=== PATIENT | female | born 1960 | race Caucasian/White ===

== ENCOUNTER 2016-12-23 16:34 | Emergency (ER) | payer OTHER ==
[2016-12-23 16:54] VITALS: BP 162/100
--- NOTE | 2016-12-23 17:57 | ED ---
Upper Extremity Pain - HPI Summary HPI Summary: 56F presents fall landed on right shoulder. She states she slipped on some tile and landed on her right shoulder. She has limited ROM of shoulder due to pain. She has not taken anything for her pain. She denies any previous injury to the area. She denies any numbness or tingling. She is right handed. She denies hitting her head or any other pain. - History of Current Complaint Chief Complaint: BayldSanthoshniccikatharine Stated Complaint: FALL/RT SHOULDER INJURY Time Seen by Provider: 12/23/16 17:22 - Allergies/Home Medications Allergies/Adverse Reactions: Allergies Allergy/AdvReac Type Severity Reaction Status Date / Time Tetracycline Allergy Mild Rash Verified 12/15/16 10:48 PMH/Surg Hx/FS Hx/Imm Hx Endocrine/Hematology History: Reports: Hx Thyroid Disease Denies: Hx Diabetes Cardiovascular History: Denies: Hx Hypercholesterolemia, Hx Hypertension, Hx Pacemaker/ICD, Hx Peripheral Vascular Disease Respiratory History: Denies: Hx Asthma, Hx Chronic Obstructive Pulmonary Disease (COPD) GI History: Denies: Hx Ulcer History: Denies: Hx Renal Disease Musculoskeletal History: Denies: Hx Arthritis, Hx Osteoporosis Sensory History: Denies: Hx Cataracts, Hx Contacts or Glasses, Hx Glaucoma, Hx Hearing Aid Opthamlomology History: Denies: Hx Cataracts, Hx Contacts or Glasses, Hx Glaucoma Neurological History: Denies: Hx Headaches, Hx Seizures, Hx Transient Ischemic Attacks (TIA) Psychiatric History: Denies: Hx Anxiety, Hx Depression, Hx Panic Disorder - Cancer History Hx Chemotherapy: No Hx Radiation Therapy: No - Surgical History Surgery Procedure, Year, and Place: total left knee replacement (2012) gastric by pass (2008) gall bladder removed (1994) rt and lt torn meniscus / scoping ( many) tubal ligation (1992),breast biopsy pt unsure what side Infectious Disease History: Denies: Hx Hepatitis, Hx Human Immunodeficiency Virus (HIV), Traveled Outside the [place] in Last 30 Days - Family History Known Family History: Positive: Cardiac Disease - Social History Alcohol Use: Weekly Hx Substance Use: No Substance Use Type: Reports: None Hx Tobacco Use: No Smoking Status (MU): Never Smoked Tobacco Review of Systems Negative: Fever Negative: Chest Pain Negative: Shortness Of Breath Positive: Myalgia - right shoulder pain All Other Systems Reviewed And Are Negative: Yes Physical Exam Triage Information Reviewed: Yes Vital Signs On Initial Exam: Initial Vitals Temp Pulse Resp BP Pulse Ox 98.8 F 67 20 162/100 99 12/23/16 16:51 12/23/16 16:51 12/23/16 16:51 12/23/16 16:51 12/23/16 16:51 Vital Signs Reviewed: Yes Appearance: Positive: Well-Appearing Skin: Positive: Warm, Dry Head/Face: Positive: Normal Head/Face Inspection Eyes: Positive: Normal, Conjunctiva Clear Respiratory/Lung Sounds: Positive: Clear to Auscultation, Breath Sounds Present Cardiovascular: Positive: Normal, RRR Musculoskeletal: Positive: Limited @ - right shoulder, Other - neg drop arm or speeds test, good pulses, capillary refil < 2 secs, tender over anterior shoulder, no step off Diagnostics - Vital Signs Vital Signs Temp Pulse Resp BP Pulse Ox 12/23/16 17:21 98.8 F 67 20 162/100 100 12/23/16 16:51 98.8 F 67 20 162/100 99 - Laboratory Lab Statement: Any lab studies that have been ordered have been reviewed, and results considered in the medical decision making process. - Radiology shoulder Xray Interpretation: No Acute Changes Radiology Interpretation Completed By: Radiologist Course/Dx - Course Course Of Treatment: 56F presents with right shoulder pain s/p falling on it. is right handed. denies any head injury. on exam no obvious deformity. tender over anterior shoulder, neg drop arm. xray normal. gave sling and told to follow up with primary. patient understands and agrees with plan - Diagnoses Differential Diagnosis/HQI/PQRI: Positive: Contusion, Fracture (Closed), Strain , Sprain Provider Diagnoses: Right shoulder injury Discharge - Discharge Plan Condition: Good Disposition: HOME Patient Education Materials: Shoulder Pain (ED) Referrals: Geovani Vernon MD [Primary Care Provider] - Additional Instructions: Take Tylenol every 6 hours as needed for pain Ice area for next 2 days, then can switch heat if more comfortable Can rest for one day and then need to do range of motion activities for shoulder Follow up with primary care physician within 7 days Return to ED if develop any new or worsening symptoms
--- NOTE | 2016-12-23 17:58 | RAD ---
HISTORY: Fall, right shoulder injury COMPARISONS: None VIEWS: 3, Frontal internal rotation, external rotation, and outlet views of the right shoulder FINDINGS: BONE DENSITY: Normal. BONES: There is no displaced fracture. JOINTS: There is mild osteoarthritis of the a.c. and glenohumeral joints ALIGNMENT: There is no dislocation. SOFT TISSUES: Unremarkable. OTHER FINDINGS: None. IMPRESSION: NO ACUTE OSSEOUS INJURY. IF SYMPTOMS PERSIST, RECOMMEND REPEAT IMAGING.
[2016-12-23] MEDS ORDERED: oxyCODONE/Acetamin 5/325 MG* TAB PO ONE (18:07)
== END 2016-12-23 18:33 | disposition home or self-care (01) ==
LOC: ED 16:34
DX: S49.91XA Unspecified injury of right shoulder and upper arm, initial encounter (principal); M25.511 Pain in right shoulder; W19.XXXA Unspecified fall, initial encounter; Y93.9 Activity, unspecified; Y92.9 Unspecified place or not applicable
CPT/HCPCS: 99282; A9270-GY

== ENCOUNTER 2017-02-04 07:40 | Emergency (ER) | payer OTHER ==
[2017-02-04 07:48] VITALS: BP 141/91
--- NOTE | 2017-02-04 08:58 | RAD ---
Indication: Right thumb injury. 3 views of the right thumb demonstrates degenerative changes of the trapezium first metacarpal joint. No fracture is identified. Degenerative changes of the interphalangeal joint is noted. IMPRESSION: DEGENERATIVE CHANGES OF THE TRAPEZIUM FIRST METACARPAL JOINT. NO FRACTURE OF THE RIGHT THUMB IS NOTED.
--- NOTE | 2017-02-04 08:58 | RAD ---
Indication: Right forearm injury after fall. 2 views of the right forearm demonstrates no fracture or dislocation. No other bone or joint abnormality is identified. IMPRESSION: No definite fracture of the right forearm is noted.
--- NOTE | 2017-02-04 09:00 | RAD ---
Indication: Right rib tenderness after fall 4 views of the right ribs demonstrates no fracture. No other bone or joint abnormality is identified. IMPRESSION: No fracture of the right ribs is present.
--- NOTE | 2017-03-08 21:38 | UC ---
Jason Phillip Aidan, scribed for Josie Robb DO on 02/04/17 at 0811 . Truncal Trauma HPI - HPI Summary HPI Summary: 56 y/o female presents to the Urgent Care with a complaint of acute, constant, [id number] (8/10) right rib pain just below the right breast that began just after she tripped and fell onto the right side of her trunk while walking up stairs. She denies hitting her head or any associated LOC. Associated symptoms include bruises to the lower extremities bilaterally. Breathing deeply aggravates her rib pain. Pt denies fevers, chills, CP, abdominal pain, diaphoresis, nausea, or vomiting. - History Of Current Complaint Chief Complaint: UCGeneralIllness Stated Complaint: RIB INJURY Hx Obtained From: Patient Hx Last Menstrual Period: unknown ?: No Onset/Duration: Sudden Onset, Lasting Days - since yesterday, Still Present Severity Initially: Moderate Severity Currently: Moderate - moderate to severe Pain Intensity: 8 Pain Scale Used: 0-10 Numeric Mechanism Of Injury: Fall From A Standing Position - Pt tripped on stairs Aggravating Factor(s): Deep Breathing Alleviating factor(s): Nothing - unknown Associated Signs And Symptoms: Negative: Negative - bruising to lower extremities - Allergies/Home Medications Allergies/Adverse Reactions: Allergies Allergy/AdvReac Type Severity Reaction Status Date / Time Tetracycline Allergy Mild Rash Verified 12/15/16 10:48 Home Medications: Home Medications Lactobacillus [Probiotic] 02/04/17 [History] Lysine HCl [Lysine] 02/04/17 [History] PMH/Surg Hx/FS Hx/Imm Hx - Additional Past Medical History Additional PMH: Arthritis Endocrine History: Thyroid Disease - Surgical History Surgical History: Yes Surgery Procedure, Year, and Place: total left knee replacement (2012) gastric by pass (2008) gall bladder removed (1994) rt and lt torn meniscus / scoping ( ) tubal ligation (1992),breast biopsy pt unsure what side - Family History Known Family History: Positive: Cardiac Disease - Social History Occupation: Employed Full-time Lives: With Family Alcohol Use: Weekly Substance Use Type: None Smoking Status (MU): Never Smoked Tobacco Review of Systems Constitutional: Negative Skin: Bruising Eyes: Negative ENT: Negative Respiratory: Negative Cardiovascular: Negative Gastrointestinal: Negative Genitourinary: Negative Motor: Negative Neurovascular: Negative Musculoskeletal: Negative Neurological: Negative Psychological: Negative All Other Systems Reviewed And Are Negative: Yes Physical Exam Triage Information Reviewed: Yes Appearance: Well-Appearing, No Pain Distress, Well-Nourished Vital Signs: Initial Vital Signs Temp 97.8 F 02/04/17 07:44 Pulse 65 02/04/17 07:44 Resp 16 02/04/17 07:44 BP 141/91 02/04/17 07:44 Pulse Ox 100 02/04/17 07:44 Vital Signs Reviewed: Yes Eyes: Positive: Conjunctiva Clear. Negative: Discharge ENT: Positive: Hearing grossly normal. Negative: Muffled/hoarse voice Neck exam: Normal Neck: Positive: Supple Respiratory: Positive: Lungs clear, Normal breath sounds, No respiratory distress, No accessory muscle use Cardiovascular: Positive: RRR, No Murmur Musculoskeletal Exam: Other - Tenderness over ribs 8-9 and tender over the proximal first metacarpal, tender proximal and distal radius. Neurological Exam: Normal Neurological: Positive: Alert Psychological Exam: Normal Psychological: Positive: Age Appropriate Behavior Skin Exam: Normal, Other - warm, dry, normal color Diagnostics - Radiology THUMB X-RAY Xray Interpretation: No Acute Changes - IMPRESSION: DEGENERATIVE CHANGES OF THE TRAPEZIUM FIRST METACARPAL JOINT. NO FRACTURE OF THE RIGHT THUMB IS NOTED. Radiology Interpretation Completed By: Radiologist FOREARM X-RAY Xray Interpretation: No Acute Changes - IMPRESSION: No definite fracture of the right forearm is noted. Radiology Interpretation Completed By: Radiologist RIBS X-RAY Xray Interpretation: No Acute Changes - IMPRESSION: No fracture of the right ribs is present. Radiology Interpretation Completed By: Radiologist Truncal Trauma Course/Dx - Course Course Of Treatment: 56 y/o female presents with right rib pain just below the right breast that resulted from her tripping and falling onto her trunk. High blood pressure is noted. - Differential Dx/Diagnosis Differential Diagnosis/HQI/PQRI: Chest Wall Contusion, Rib Fracture Provider Diagnoses: rib injury, contusion Discharge - Discharge Plan Condition: Stable Disposition: HOME Prescriptions: Naproxen TAB* [Naprosyn 250 mg TAB*] 500 mg PO BID PRN #14 tab PRN Reason: Pain traMADol TAB* [Ultram*] 50 mg PO Q8H PRN #14 tab MDD 3 TABS PRN Reason: Pain Patient Education Materials: Contusion in Adults (ED), Rib Contusion (ED) Referrals: Geovani Vernon MD [Primary Care Provider] - If Needed Additional Instructions: YOU WOULD LIKELY BENEFIT FROM OSTEOPATHIC TREATMENT. WE RECOMMEND THAT YOU FIND AN OSTEOPATHIC PHYSICIAN IN YOUR AREA WHO FOCUSES EXCLUSIVELY ON OSTEOPATHIC MANIPULATIVE MEDICINE WITH EXPERTISE IN MYOFACIAL, LYMPHATIC, VISCERAL AND INTEROSSEOUS WORK The documentation as recorded by the Jason parrish Aidan accurately reflects the service I personally performed and the decisions made by me, Josie Robb DO.
== END 2017-02-04 09:32 | disposition home or self-care (01) ==
LOC: UCEAST 07:40
DX: S20.211A Contusion of right front wall of thorax, initial encounter (principal); S29.9XXA Unspecified injury of thorax, initial encounter; W10.2XXA Fall (on)(from) incline, initial encounter; Y93.9 Activity, unspecified; Y92.9 Unspecified place or not applicable; R03.0 Elevated blood-pressure reading, without diagnosis of hypertension; Z96.652 Presence of left artificial knee joint; Z98.84 Bariatric surgery status; Z90.49 Acquired absence of other specified parts of digestive tract; Z88.1 Allergy status to other antibiotic agents
CPT/HCPCS: 99212; G0463

== ENCOUNTER 2019-05-08 07:30 | Inpatient (IN) | payer OTHER ==
--- NOTE | 2019-04-25 16:51 | HP ---
Amended report to enter cosigning physician. PREOPERATIVE HISTORY AND PHYSICAL: DATE OF ADMISSION/SURGERY: 05/08/19 SURGEON: Dr. Viri Morris* (dictated by MORIAH Seals). PROCEDURE: Right total knee arthroplasty. HISTORY OF PRESENT ILLNESS: Ms. Carranza is a 58-year-old female with almost a year of increasingly severe right knee pain that has become unmanageable. Her pain is made worse with walking, standing, or after a period of sitting. The knee has given out on her and feels unstable. She has a sharp shooting pain along the joint line with swelling and has failed conservative treatment of anti -inflammatories and physical therapy without relief. The patient had a left total knee arthroplasty in [place] several years ago with poor pain control postoperatively requiring manipulation under anesthesia. She is quite nervous today about her postoperative course and a discussion was had with Dr. Morris regarding a request for swing bed postoperatively in rehab facility. PAST MEDICAL HISTORY: Hypertension, osteoarthritis, hypercholesterolemia, GERD , morbid obesity. PAST SURGICAL HISTORY: Left total knee arthroplasty in 2012, gastric bypass in 2008, tubal ligation in 1991, cholecystectomy, rotator cuff repair in October 2007. She denies anesthetic complications with these procedures. CURRENT MEDICATIONS: 1. Levoxyl 75 mcg 1 tab p.o. daily. 2. Iron 1 tab p.o. daily. 3. Vitamin D3 4000 International Units p.o. daily. 4. Losartan potassium 50 mg 1 tab by mouth daily. 5. Contrave 8/90 mg 2 tabs twice a day. 6. Voltaren 1% cream apply 2 g twice daily as needed for pain. ALLERGIES: TETRACYCLINE can make her itchy. FAMILY HISTORY: Positive for diabetes, heart disease, hypertension, and cancer. SOCIAL HISTORY: She lives with her , who will care for her postoperatively. 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 She denies tobacco or recreational drug use. She consumes 4 to 6 alcoholic beverages per week. She is normally active. REVIEW OF SYSTEMS: A 14-point review of systems is reviewed with the patient today and is positive for right knee pain, right knee instability, weight loss. All other systems are negative. She denies history of DVT or PE. PHYSICAL EXAMINATION GENERAL: She is a well-developed, heavyset female, seated in exam chair, in no acute distress, with appropriate affect. VITAL SIGNS: Height 63 inches, weight 211 pounds. Pulse 64, blood pressure 138 /86, respirations 18. HEENT: Normocephalic, atraumatic. Hearing and vision are grossly intact, with extraocular movements intact. CHEST: Lungs are clear to auscultation. No wheezes, rales, or rhonchi noted. CARDIO: Regular rate and rhythm. Normal S1, S2. No murmurs, rubs, or gallops appreciated. ABDOMEN: Nondistended, nontender. Bowel sounds present. GENITOURINARY: Deferred. MUSCULOSKELETAL: Right lower extremity: Skin is pink, dry, and intact without abrasions or open wounds. A moderate effusion is noted at the joint. She is tender to palpation along the medial joint line with varus deformity of the knee. She extends to 5 degrees, flexes to 120 with pain and patellofemoral crepitus. She has 5/5 strength against resistance in 4 planes in the right ankle with intact sensation and a 2+ dorsalis pedis pulse. IMAGING: Previous radiographs show severe end-stage arthritis in the right knee with varus alignment. There is [id number] contact in the medial compartment as well as tricompartmental joint space narrowing, osteophyte formation, subchondral sclerosis. ASSESSMENT: Right knee severe osteoarthritis. PLAN: Right total knee arthroplasty with Dr. Morris. The patient's questions were answered and she would like to proceed. Dr. Morris discussed the risks and benefits of surgery at today's visit. Pain medications will be dispensed postoperatively and the patient will follow up with our office after surgery. MORIAH MESA [id number]/CPS #: [id number] MARIE
[~2019-05-08 07:30] MED LIST: Acetaminophen IV 1GM/100ML * 1,000 MG/100 ML VIAL IVPB ONE; Buffered Lidocaine 1% SYRIN* 1 ML/SYRINGE INTRADERM ONE; Dexamethasone IV* 4 MG/ML 1 ML (4 MG) IV SLOW PU ONE; Famotidine IV* 10 MG/ML 2 ML (20 mg) IV ONE; Gabapentin CAP(*) 300 MG PO ONE; Lactated Ringers 1000 ML Bag* 1,000 ML IV SCH; Tranexamic Acid 1,000 MG in NS 0.9% 50 ML* (outpatient use) IV SCH
--- OUTSIDE RECORDS SUMMARY | 2019-05-08 11:03 | XMS REPORT | Continuity of Care Document ---
:1960 External Reference #:[id number] Author Name Cynthia Davis M.D. Address [address] [place] [address] Care Team Providers Name Role Phone Geovani Vernon M.D. 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 Onset: 07/10/2014 chemical Toxic effect of venom Cynthia Davis M.D. Onset: 07/10/2014 Toxic effect of venom of bees, accidental Cynthia Davis M.D. Onset: 2015 (unintentional), subsequent encounter Toxic effect of venom of wasps, accidental Cynthia Davis M.D. Onset: 2015 (unintentional), subsequent encounter Toxic effect of venom of hornets, jonn Davis M.D. Onset: 08/19 (unintentional), subsequent encounter Chronic rhinitis Cynthia Davis M.D. Onset: 08/19/2016 Atopic dermatitis Cynthia Davis M.D. Onset: 09/18/2014 Social History Type Date Description Comments Sex Unknown ETOH Use Occasionally consumes alcohol Tobacco Use Start: Unknown Patient has never smoked Recreational Drug Use Denies Drug Use Allergies, Adverse Reactions, Alerts Active Allergies Reaction Severity Comments Date Tetracycline Urticaria 07/10/2014 Medications Active Medications SIG Qnty Indications Ordering Date Provider Levothyroxine Sodium Geovani Vernon Kathy Simms 75mcg Tablets Iron Unknown 28mg Tablets Vitamin D Unknown 1000Unit Tablets Vitamin K2-Vitamin D3 with calcium, Unknown magnesium Capsules Epipen 2-Shahram use as directed 2units Cynthia Davis, 0.3mg/0.3ML for allergy Kathy Solution Auto-Inject exposure Losartan Potassium Take 1 Tablet By Unknown 50mg Mouth Every Day Tablets Sweetie Allergy 1 by mouth every Unknown 180mg day Tablets Contrave Take 2 Tablets By Unknown 8-90mg Tablets Mouth Twice A Day ER 12HR Diclofenac Sodium Apply To Unknown 1% Gel Bilateral Knees Up To Three Times Daily Triamcinolone Apply To Affected Unknown Acetonide Area Twice A Day 0.1% Cream Medications Administered in Office Medication SIG Qnty Indications Ordering Provider Date Injection Allergy Injection 04/11/2019 Injection Injection Allergy Injection 03/12/2019 Injection Injection Allergy Injection 02/19/2019 Injection Injection Allergy Injection 02/01/2019 Injection Injection Allergy Injection 12/25/2018 Injection Injection Allergy Injection 11/27/2018 Injection Injection Allergy Injection 11/24/2018 Injection Injection Allergy Injection 11/20/2018 Injection Injection Allergy Injection 11/17/2018 Injection Injection Allergy Injection 11/13/2018 Injection Injection Allergy Injection 11/10/2018 Injection Injection Allergy Injection 11/06/2018 Injection Injection Allergy Injection 10/30/2018 Injection Injection Allergy Injection 10/16/2018 Injection Injection Allergy Injection 10/02/2018 Injection Injection Allergy Injection 09/21/2018 Injection Injection Allergy Injection 09/13/2018 Injection Injection Allergy Injection 08/28/2018 Injection Injection Allergy Injection 08/07/2018 Injection Injection Allergy Injection 07/26/2018 Injection Injection Allergy Injection 07/10/2018 Injection Injection Allergy Injection 06/29/2018 Injection Injection Allergy Injection 06/15/2018 Injection Injection Allergy Injection 05/31/2018 Injection Injection Allergy Injection 05/18/2018 Injection Injection Cynthia Davis M.D. 05/04/2018 Injection Injection Allergy Injection 05/04/2018 Injection Injection Cynthia Davis M.D. 04/20/2018 Injection Injection Allergy Injection 04/20/2018 Injection Injection Allergy Injection 04/12/2018 Injection Injection Cynthia Davis M.D. 01/09/2018 Injection Injection Allergy Injection 01/09/2018 Injection Injection Allergy Injection 12/12/2017 Injection Injection Allergy Injection 11/14/2017 Injection Injection Allergy Injection 10/07/2017 Injection Injection Allergy Injection 09/09/2017 Injection Injection Allergy Injection 09/02/2017 Injection Injection Allergy Injection 08/26/2017 Injection Injection Allergy Injection 08/17/2017 Injection Injection Allergy Injection 05/20/2017 Injection Injection Allergy Injection 04/22/2017 Injection Injection Allergy Injection 03/25/2017 Injection Injection Allergy Injection 02/11/2017 Injection Injection Allergy Injection 01/14/2017 Injection Injection Allergy Injection 12/09/2016 Injection Injection Allergy Injection 11/10/2016 Injection Injection Allergy Injection 10/13/2016 Injection Injection Allergy Injection 09/22/2016 Injection Injection Allergy Injection 09/08/2016 Injection Injection Allergy Injection 08/19/2016 Injection Injection Allergy Injection 08/09/2016 Injection Injection Allergy Injection 07/26/2016 Injection Injection Allergy Injection 07/12/2016 Injection Injection Allergy Injection 06/28/2016 Injection Injection Allergy Injection 06/14/2016 Injection Injection Allergy Injection 05/31/2016 Injection Injection Allergy Injection 05/17/2016 Injection Injection Allergy Injection 05/03/2016 Injection Injection Allergy Injection 04/23/2016 Injection Injection Allergy Injection 04/09/2016 Injection Injection Allergy Injection 03/24/2016 Injection Injection Allergy Injection 03/08/2016 Injection Injection Allergy Injection 02/20/2016 Injection Injection Allergy Injection 02/04/2016 Injection Injection Allergy Injection 01/16/2016 Injection Injection Allergy Injection 01/02/2016 Injection Injection Allergy Injection 12/19/2015 Injection Injection Allergy Injection 12/05/2015 Injection Injection Allergy Injection 09/25/2015 Injection Injection Allergy Injection 09/10/2015 Injection Injection Allergy Injection 08/25/2015 Injection Injection Allergy Injection 08/20/2015 Injection Injection Allergy Injection 08/14/2015 Injection Injection Allergy Injection 08/06/2015 Injection Injection Allergy Injection 07/30/2015 Injection Injection Allergy Injection 07/25/2015 Injection Injection Allergy Injection 07/09/2015 Injection Injection Allergy Injection 06/30/2015 Injection Injection Allergy Injection 06/25/2015 Injection Injection Allergy Injection 06/16/2015 Injection Injection Allergy Injection 06/09/2015 Injection Injection Allergy Injection 05/19/2015 Injection Injection Allergy Injection 05/12/2015 Injection Injection Allergy Injection 05/07/2015 Injection Injection Allergy Injection 04/30/2015 Injection Injection Allergy Injection 04/24/2015 Injection Injection Allergy Injection 04/14/2015 Injection Injection Allergy Injection 04/02/2015 Injection Injection Allergy Injection 03/24/2015 Injection Injection Allergy Injection 03/19/2015 Injection Injection Allergy Injection 03/10/2015 Injection Injection Allergy Injection 03/03/2015 Injection Injection Allergy Injection 02/24/2015 Injection Injection Allergy Injection 02/19/2015 Injection Injection Allergy Injection 02/10/2015 Injection Injection Allergy Injection 02/05/2015 Injection Injection Allergy Injection 01/27/2015 Injection Injection Allergy Injection 01/20/2015 Injection Injection Allergy Injection 01/15/2015 Injection Injection Allergy Injection 01/06/2015 Injection Injection Allergy Injection 12/30/2014 Injection Injection Allergy Injection 12/23/2014 Injection Injection Allergy Injection 12/16/2014 Injection Injection Allergy Injection 12/11/2014 Injection Injection Allergy Injection 12/04/2014 Injection Injection Allergy Injection 11/25/2014 Injection Injection Allergy Injection 11/11/2014 Injection Injection Allergy Injection 11/04/2014 Injection Injection Allergy Injection 10/28/2014 Injection Injection Allergy Injection 10/21/2014 Injection Injection Allergy Injection 10/14/2014 Injection Injection Allergy Injection 10/07/2014 Injection Injection Allergy Injection 09/30/2014 Injection Immunizations CPT Code Status Date Vaccine Lot # [id number] Given Unknown Influenza Vaccine 24886 Given Unknown Influenza Vaccine Vital Signs Date Vital Result Comment 04/11/2019 8:43am Height 63 inches 5'3" Weight 210.00 lb Weight 95.256 kg Respiratory Rate 20 /min Heart Rate 78 /min O2 % BldC Oximetry 97 % BP Systolic 122 mmHg BP Diastolic 65 mmHg BMI (Body Mass Index) 37.2 kg/m2 04/12/2018 8:49am Height 63 inches 5'3" Weight 238.00 lb Weight 107.957 kg Respiratory Rate 20 /min Heart Rate 69 /min O2 % BldC Oximetry 99 % BP Systolic 131 mmHg BP Diastolic 80 mmHg BMI (Body Mass Index) 42.2 kg/m2 Results Description No Information Available Procedures Date Code Description Status 04/11/2019 03215 Injection Completed 03/12/2019 74545 Injection Completed 02/19/2019 44601 Injection Completed 02/01/2019 33319 Injection Completed 12/25/2018 00988 Extract Stings-Four Completed 12/25/2018 04088 Injection Completed 11/27/2018 06897 Injection Completed 11/24/2018 65994 Injection Completed 11/20/2018 62632 Injection Completed 11/17/2018 42836 Injection Completed 11/13/2018 31154 Extract 1-10 Completed 11/13/2018 68177 Extract Stings-Five Completed 11/13/2018 82950 Extract Stings-Four Completed 11/13/2018 95151 Injection Completed 11/10/2018 61013 Injection Completed 11/06/2018 30434 Injection Completed 10/30/2018 07571 Injection Completed 10/16/2018 71243 Injection Completed Medical Devices Description No Information Available Encounters Description No Information Available Assessments Date Code Description Provider 04/11/2019 T63.441D Toxic effect of venom of bees, accidental Cynthia Davis M.D. (unintentional), subsequent encounter 04/11/2019 T63.441D Toxic effect of venom of bees, accidental Cynthia Davis M.D. (unintentional), subsequent encounter 04/11/2019 T63.441D Toxic effect of venom of bees, accidental, Allergy Injection subs 04/11/2019 T63.461D Toxic effect of venom of wasps, jonn Davis M.D. (unintentional), subsequent encounter 04/11/2019 T63.461D Toxic effect of venom of wasps, accidental Cynthia Davis M.D. (unintentional), subsequent encounter 04/11/2019 T63.461D Toxic effect of venom of wasps, accidental, Allergy Injection subs 04/11/2019 T63.451D Toxic effect of venom of hornets, jonn Davis M.D. (unintentional), subsequent encounter 04/11/2019 T63.451D Toxic effect of venom of hornets, jonn Davis M.D. (unintentional), subsequent encounter 04/11/2019 T63.451D Toxic effect of venom of hornets, accidental, Allergy Injection subs 03/12/2019 T63.441D Toxic effect of venom of bees, accidental Cynthia Davis M.D. (unintentional), subsequent encounter 03/12/2019 T63.441D Toxic effect of venom of bees, accidental, Allergy Injection subs 03/12/2019 T63.461D Toxic effect of venom of wasps, accidental Cynthia Davis M.D. (unintentional), subsequent encounter 03/12/2019 T63.461D Toxic effect of venom of wasps, accidental, Allergy Injection subs 03/12/2019 T63.451D Toxic effect of venom of hornets, accidental Cynthia Davis M.D. (unintentional), subsequent encounter 03/12/2019 T63.451D Toxic effect of venom of hornets, accidental, Allergy Injection subs 02/19/2019 T63.441D Toxic effect of venom of bees, accidental Cynthia Davis M.D. (unintentional), subsequent encounter 02/19/2019 T63.441D Toxic effect of venom of bees, accidental, Allergy Injection subs 02/19/2019 T63.461D Toxic effect of venom of wasps, accidental Cynthia Davis M.D. (unintentional), subsequent encounter 02/19/2019 T63.461D Toxic effect of venom of wasps, accidental, Allergy Injection subs 02/19/2019 T63.451D Toxic effect of venom of hornets, accidental Cynthia Davis M.D. (unintentional), subsequent encounter 02/19/2019 T63.451D Toxic effect of venom of hornets, accidental, Allergy Injection subs 02/01/2019 T63.441D Toxic effect of venom of bees, accidental Cynthia Davis M.D. (unintentional), subsequent encounter 02/01/2019 T63.441D Toxic effect of venom of bees, accidental, Allergy Injection subs 02/01/2019 T63.461D Toxic effect of venom of wasps, accidental Cynthia Davis M.D. (unintentional), subsequent encounter 02/01/2019 T63.461D Toxic effect of venom of wasps, accidental, Allergy Injection subs 02/01/2019 T63.451D Toxic effect of venom of hornets, accidental Cynthia Davis M.D. (unintentional), subsequent encounter 02/01/2019 T63.451D Toxic effect of venom of hornets, accidental, Allergy Injection subs 12/25/2018 T63.441D Toxic effect of venom of bees, accidental Cynthia Davis M.D. (unintentional), subsequent encounter 12/25/2018 T63.441D Toxic effect of venom of bees, accidental, Allergy Injection subs 12/25/2018 T63.461D Toxic effect of venom of wasps, accidental Cynthia Davis M.D. (unintentional), subsequent encounter 12/25/2018 T63.461D Toxic effect of venom of wasps, accidental, Allergy Injection subs 12/25/2018 T63.451D Toxic effect of venom of hornets, accidental Cynthia Davis M.D. (unintentional), subsequent encounter 12/25/2018 T63.451D Toxic effect of venom of hornets, accidental, Allergy Injection subs 11/27/2018 T63.441D Toxic effect of venom of bees, accidental Cynthia Davis M.D. (unintentional), subsequent encounter 11/27/2018 T63.441D Toxic effect of venom of bees, accidental, Allergy Injection subs 11/27/2018 T63.461D Toxic effect of venom of wasps, accidental Cynthia Davis M.D. (unintentional), subsequent encounter 11/27/2018 T63.461D Toxic effect of venom of wasps, accidental, Allergy Injection subs 11/27/2018 T63.451D Toxic effect of venom of hornets, jonn Davis M.D. (unintentional), subsequent encounter 11/27/2018 T63.451D Toxic effect of venom of hornets, accidental, Allergy Injection subs 11/24/2018 T63.441D Toxic effect of venom of bees, accidental Cynthia Davis M.D. (unintentional), subsequent encounter 11/24/2018 T63.441D Toxic effect of venom of bees, accidental, Allergy Injection subs 11/24/2018 T63.461D Toxic effect of venom of wasps, accidental Cynthia Davis M.D. (unintentional), subsequent encounter 11/24/2018 T63.461D Toxic effect of venom of wasps, accidental, Allergy Injection subs 11/24/2018 T63.451D Toxic effect of venom of hornets, accidental Cynthia Davis M.D. (unintentional), subsequent encounter 11/24/2018 T63.451D Toxic effect of venom of hornets, accidental, Allergy Injection subs 11/20/2018 T63.441D Toxic effect of venom of bees, accidental Cynthia Davis M.D. (unintentional), subsequent encounter 11/20/2018 T63.441D Toxic effect of venom of bees, accidental, Allergy Injection subs 11/20/2018 T63.461D Toxic effect of venom of wasps, accidental Cynthia Davis M.D. (unintentional), subsequent encounter 11/20/2018 T63.461D Toxic effect of venom of wasps, accidental, Allergy Injection subs 11/20/2018 T63.451D Toxic effect of venom of hornets, accidental Cynthia Davis M.D. (unintentional), subsequent encounter 11/20/2018 T63.451D Toxic effect of venom of hornets, accidental, Allergy Injection subs 11/17/2018 T63.441D Toxic effect of venom of bees, accidental Cynthia Davis M.D. (unintentional), subsequent encounter 11/17/2018 T63.441D Toxic effect of venom of bees, accidental, Allergy Injection subs 11/17/2018 T63.461D Toxic effect of venom of wasps, accidental Cynthia Davis M.D. (unintentional), subsequent encounter 11/17/2018 T63.461D Toxic effect of venom of wasps, accidental, Allergy Injection subs 11/17/2018 T63.451D Toxic effect of venom of hornets, accidental Cynthia Davis M.D. (unintentional), subsequent encounter 11/17/2018 T63.451D Toxic effect of venom of hornets, accidental, Allergy Injection subs 11/13/2018 T63.441D Toxic effect of venom of bees, accidental Cynthia Davis M.D. (unintentional), subsequent encounter 11/13/2018 T63.441D Toxic effect of venom of bees, accidental, Allergy Injection subs 11/13/2018 T63.461D Toxic effect of venom of wasps, accidental Cynthia Davis M.D. (unintentional), subsequent encounter 11/13/2018 T63.461D Toxic effect of venom of wasps, accidental, Allergy Injection subs 11/13/2018 T63.451D Toxic effect of venom of hornets, accidental Cynthia Davis M.D. (unintentional), subsequent encounter 11/13/2018 T63.451D Toxic effect of venom of hornets, accidental, Allergy Injection subs 11/10/2018 T63.441D Toxic effect of venom of bees, accidental Cynthia Davis M.D. (unintentional), subsequent encounter 11/10/2018 T63.441D Toxic effect of venom of bees, accidental, Allergy Injection subs 11/10/2018 T63.461D Toxic effect of venom of wasps, accidental Cynthia Davis M.D. (unintentional), subsequent encounter 11/10/2018 T63.461D Toxic effect of venom of wasps, accidental, Allergy Injection subs 11/10/2018 T63.451D Toxic effect of venom of hornets, accidental Cynthia Davis M.D. (unintentional), subsequent encounter 11/10/2018 T63.451D Toxic effect of venom of hornets, accidental, Allergy Injection subs 11/06/2018 T63.441D Toxic effect of venom of bees, accidental Cynthia Davis M.D. (unintentional), subsequent encounter 11/06/2018 T63.441D Toxic effect of venom of bees, accidental, Allergy Injection subs 11/06/2018 T63.461D Toxic effect of venom of wasps, accidental Cynthia Davis M.D. (unintentional), subsequent encounter 11/06/2018 T63.461D Toxic effect of venom of wasps, accidental, Allergy Injection subs 11/06/2018 T63.451D Toxic effect of venom of hornets, accidental Cynthia Davis M.D. (unintentional), subsequent encounter 11/06/2018 T63.451D Toxic effect of venom of hornets, accidental, Allergy Injection subs 10/30/2018 T63.441D Toxic effect of venom of bees, accidental Cynthia Davis M.D. (unintentional), subsequent encounter 10/30/2018 T63.441D Toxic effect of venom of bees, accidental, Allergy Injection subs 10/30/2018 T63.461D Toxic effect of venom of wasps, accidental Cynthia Davis M.D. (unintentional), subsequent encounter 10/30/2018 T63.461D Toxic effect of venom of wasps, accidental, Allergy Injection subs 10/30/2018 T63.451D Toxic effect of venom of hornets, accidental Cynthia Davis M.D. (unintentional), subsequent encounter 10/30/2018 T63.451D Toxic effect of venom of hornets, accidental, Allergy Injection subs 10/16/2018 T63.441D Toxic effect of venom of bees, accidental Cynthia Davis M.D. (unintentional), subsequent encounter 10/16/2018 T63.441D Toxic effect of venom of bees, accidental, Allergy Injection subs 10/16/2018 T63.461D Toxic effect of venom of wasps, accidental Cynthia Davis M.D. (unintentional), subsequent encounter 10/16/2018 T63.461D Toxic effect of venom of wasps, accidental, Allergy Injection subs 10/16/2018 T63.451D Toxic effect of venom of hornets, accidental Cynthia Davis M.D. (unintentional), subsequent encounter 10/16/2018 T63.451D Toxic effect of venom of hornets, accidental, Allergy Injection subs Plan of Treatment Future Appointment(s):05/02/2019 4:30 pm - Allergy Injection at [place] Functional Status Description No Information Available Mental Status Description No Information Available Referrals Description No Information Available
[2019-05-08] MEDS ORDERED: Buffered Lidocaine 1% SYRIN* 1 ML/SYRINGE INTRADERM ONE (11:21)
[2019-05-08] MEDS ORDERED: Gabapentin CAP(*) 300 MG ONE (11:21)
[2019-05-08] MEDS ORDERED: Famotidine IV* 10 MG/ML 2 ML (20 mg) ONE (11:21)
[2019-05-08] MEDS ORDERED: Dexamethasone IV* 4 MG/ML 1 ML (4 MG) ONE (11:21)
[2019-05-08] MEDS ORDERED: ceFAZolin 2 GM PREMIX in ORs 2 GM/50 ML BAG ONE (11:22)
[2019-05-08] MEDS ORDERED: Acetaminophen IV 1GM/100ML * 100 ML ONE (11:43)
[2019-05-08] MEDS ORDERED: Ondansetron INJ* 2 MG/ML VIAL ONE (11:47)
[2019-05-08] MEDS ORDERED: KETAMINE HCL* 50 MG/ML 10 ML VIAL ONE (11:47)
[2019-05-08] MEDS ORDERED: Propofol* 10 MG/ML 20 ML BTL ONE ×2 (11:47→14:12)
[2019-05-08] MEDS ORDERED: Bupivacaine 0.5% SDV PF* 30ML VIAL ONE (11:47)
[2019-05-08] MEDS ORDERED: Midazolam* 1 MG/ML 5 ML VIAL (5 MG) ONE ×2 (11:47→14:16)
[2019-05-08] MEDS ORDERED: ROPIVACAINE 5 MG/ML 30 ML BTL (0.5%) ONE ×2 (12:18→12:29)
[2019-05-08] MEDS ORDERED: fentaNYL* 50 MCG/ML 2 ML VIAL (100 MCG VIAL) ONE (12:53)
[2019-05-08] MEDS ORDERED: Lidocaine 2% w/ EPI 1:200,000* 20 ML SDV VIAL ONE (14:07)
[2019-05-08] MEDS ORDERED: Sodium Bicarbonate 8.4% VIAL* 10 ML VIAL IV ONE (14:07)
[2019-05-08] MEDS ORDERED: Scopolamine 1.5 mg* PATCH TRANSDERM PRN (14:36)
[2019-05-08] MEDS ORDERED: Ondansetron INJ* 2 MG/ML VIAL IV PRN ×2 (14:36→15:58)
[2019-05-08] MEDS ORDERED: Naloxone* 0.4 MG/ML 1 ML VIAL IV PRN (14:36)
[2019-05-08] MEDS ORDERED: DiMENhydriNATE IV* 50 MG/ML VIAL IV PUSH PRN (14:36)
[2019-05-08] MEDS ORDERED: HYDROmorphone INJ1* 1 MG/ML SYRINGE IV PRN (14:36)
[2019-05-08] MEDS ORDERED: fentaNYL* 50 MCG/ML 2 ML VIAL (100 MCG VIAL) IV PRN (14:36)
[2019-05-08] MEDS ORDERED: oxyCODONE/Acetamin 5/325 MG* TAB PO PRN (15:58)
[2019-05-08] MEDS ORDERED: Polyethylene Glycol 3350* 17 GM PACKET PO PRN (15:58)
[2019-05-08] MEDS ORDERED: Ondansetron ODT TAB* 4 MG PO PRN (15:58)
[2019-05-08] MEDS ORDERED: Magnesium Hydroxide LIQ* 30 ML UDC PO PRN (15:58)
[2019-05-08] MEDS ORDERED: Morphine 4 MG/ML VIAL (1 ml) 4 MG/ML VIAL IV PRN (15:58)
[2019-05-08] MEDS ORDERED: traMADol TAB* 50 MG PO PRN (16:00)
[2019-05-08] MEDS ORDERED: cloNIDine TAB* 0.1 MG PO PRN (18:35)
[2019-05-08] MEDS: oxyCODONE TAB* 5 MG TAB PO PRN ×2 (18:35→23:57)
[2019-05-08] MEDS: Lactated Ringers 1000 ML Bag* 1,000 ML IV SCH (18:43)
[2019-05-08] MEDS ORDERED: Morphine 10 MG/ML VIAL (1 ml) IV PRN (19:00)
[2019-05-08] MEDS ORDERED: Aspirin EC TAB* 81 MG TAB.EC PO ONE (19:10)
--- NOTE | 2019-05-08 19:36 | OP ---
Operative Report - Blank - Operative Report Date of Operation: 05/08/19 Note: XIANG KYLE 1960 Date of Surgery: 05/08/19 Viri Morris MD Track Inspector: Meghan MAJOR did help throughout the procedure with preparation of the knee, wound retraction, manipulation of the knee, and wound closure. Anesthesiologist: Anatoly Moore MD Anesthesia Type: Spinal Preoperative Diagnosis: Right severe degenerative osteoarthritis of the knee Postoperative Diagnosis: As above Procedure Performed: Right Total Knee Arthroplasty Tourniquet time: 54 minutes Complications: None Specimen: Bone and cartilage from the right knee joint sent to pathology. Hardware Used: Cemented Ashraf and Nephew total knee hardware was used - For the femur a size 6 narrow right oxinium legion posterior stabilized femoral component, for the tibia a size 5 right stanton II tibial baseplate, for the insert a size 9mm 5-6 posterior stabilized articular polyethylene insert, and for the patella a size 35 3-peg all poly patella. Brief History/Indication: XIANG KYLE was known in clinic and had a history of severe right knee pain and swelling. She failed conservative treatment with anti-inflammatories, pain pills, intra-articular injections and physical therapy. She elected to undergo right total knee arthroplasty due to continued pain and decreased quality of life. Radiographs showed severe end stage osteoarthritis of the knee with bone on bone contact. Informed consent was obtained from the patient. She understood the risks of surgery included but were not limited to: bleeding, infection, damage to nearby structures, intraoperative fracture, nerve palsy, failure of the hardware, early loosening, knee stiffness or loss of motion, anesthesia complications, stroke, heart attack , blood clot and . She wished to proceed. Intra-Operative Findings: Intraoperatively the patient was noted to have severe loss of cartilage in all 3 compartments of the knee. The knee had extensive osteophyte formation. Description of the Procedure: XIANG KYLE was identified in the preanesthesia unit. Her right knee was marked as the correct operative side. Informed consent was signed and placed in the chart. The patient was taken to the operating room and placed under anesthesia without complication. A mark catheter was placed. A tourniquet was placed on the right thigh. The right lower extremity was prepped and draped in the usual sterile fashion. Preoperative time-out was made to correctly identify the patient, side and site. Appropriate intraoperative antibiotics were given within one hour of incision. Tourniquet was inflated. A midline incision was made and carried sharply down to the extensor mechanism. A new 10 blade was used to make a standard medial parapatellar arthrotomy. The patella was subluxed laterally. Electrocautery was used to dissect soft tissue off the superomedial tibia to the midsagittal plane. The knee was flexed up. The anterior horn of the lateral meniscus and the ACL were sharply incised. A drill was used to enter the distal femur. The intramedullary distal femoral cutting guide was pinned on the distal femur. The oscillating saw was used to make the distal femoral cut. The external rotation guide was pinned on the distal femur and the distal femur was sized to a size 6. The size 6 multi-cutting jig was pinned on the distal femur. The oscillating saw was used to make the appropriate 4 chamfer cuts. Next the PCL was completely released. The extramedullary tibial cutting guide was pinned on the proximal tibia and the oscillating saw was used to make the proximal tibial cut perpendicular to the mechanical axis of the tibia. The bone was carefully removed. The knee was brought out into full extension. The spacer block was placed and had excellent fit with the knee in full extension. The medial and lateral ligaments were well balanced. The flexion and extension gaps were well balanced. The knee was flexed up. Lamina immigration inspector was placed both medially and laterally. Any remaining meniscus was removed with electrocautery. Curved osteotome was used to remove any posterior osteophytes. The tibial tray and drop thanh were placed and confirmed a satisfactory tibial cut. The size 6 right narrow femoral trial was impacted onto the distal femur. This trial had excellent fit and stability. The box for the posterior stabilized implant was prepared using a box cut osteotome and a reamer. Next a tibial tray trial and 9 mm insert trial was placed. The knee was taken through a range of motion and had full extension to 130 degrees of flexion. Patellofemoral tracking was satisfactory. The patella was inverted and sized to a size 35. Three peg holes were drilled through the size 35 drill guide. The trial patella was placed and the knee was taken through a range of motion. There was satisfactory patellofemoral tracking. All trials were removed. The tibia was subluxed anteriorly and sized to a size 5. The proximal tibial was prepared with a size 5 keel punch. All bony cut surfaces were irrigated with sterile saline and dried. Final implants were cemented into place starting with the tibia, followed by the femur, and last the patella. A 9 mm insert trial was placed and the knee was brought into full extension. Tourniquet was turned down and the knee was copiously irrigated with sterile saline. Electrocautery was used to obtain meticulous hemostasis. Once the cement had fully cured, the insert trial was removed. Any excess cement was removed from around the hardware and capsule. Final insert chosen was a 9 mm posterior stabilized Stanton II articular insert size 5-6. Stability of the insert was checked and noted to be stable. The extensor mechanism was closed using number 1 vicryls. The rest of the incision was closed in a layered fashion using 0 and 2-0 vicryls. The skin was closed using 3-0 nylon suture. Sterile xeroform, 4x4s and webril were used to cover the incision. Bryson wrap and cold pack were used to cover the dressings. The patients anesthesia was reversed without difficulty. She was taken to the PACU in stable condition. Intended weight-bearing will be as tolerated.
[2019-05-08] MEDS: Pantoprazole TAB * 40 MG TAB PO SCH (20:05)
[2019-05-08] MEDS: Cyclobenzaprine TAB* 10 MG PO PRN (20:05)
[2019-05-08] MEDS: Ketorolac INJ* 30 MG/ML 1 ML VIAL IV PRN (20:08)
--- NOTE | 2019-05-08 20:35 | CONS ---
CC: Dr. Morris; "Turner Mota" * CONSULTATION REPORT: DATE OF CONSULT: 05/08/19 REQUESTING SERVICE: Hospitalist. REQUESTING PHYSICIAN: Dr. Morris. CONSULTING PHYSICIAN: Dr. Echavarria. PRIMARY CARE PROVIDER: "Turner Mota." REASON FOR CONSULT: Postop management for hypertension, GERD, and obesity. HISTORY OF PRESENT ILLNESS: This is a 58-year-old female with underlying known history of morbid obesity status post gastric bypass about 10 years ago, hypothyroidism, hypertension, she presented for an elective right total knee arthroplasty. The patient underwent surgery today on 05/08/19. She tolerated the procedure well. Medicine service was consulted for postop management for the hypertension, obesity, and hypothyroidism. The patient was seen and evaluated on the floor. She is complaining her main concern is the right postop knee pain. Otherwise, denies any chest pain. No shortness of breath. No dizziness. No lightheadedness. PAST MEDICAL HISTORY: 1. Hypertension. 2. Osteoarthritis. 3. Hyperlipidemia. 4. GERD. 5. Morbid obesity. PAST SURGICAL HISTORY: 1. Left total knee arthroplasty 2012. 2. Gastric bypass 2008. 3. Tubal ligation 1991. 4. Cholecystectomy. 5. Rotator cuff repair. MEDICATIONS: She is on: 1. Levoxyl 75 mcg 1 tab daily. 2. Losartan 50 mg 1 tab daily. 3. Vitamin D. 4. Wellbutrin 150 b.i.d. to replace her Contrave perioperatively. ALLERGIES: She is allergic to TETRACYCLINE. FAMILY HISTORY: Positive for diabetes, heart disease, hypertension. SOCIAL HISTORY: She lives with her . 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 Denies any tobacco or alcohol use. She consumes 4 to 6 . Otherwise, no illicit drug use. REVIEW OF SYSTEMS: As per HPI. PHYSICAL EXAM: Her vital signs are temperature 97.5, pulse 58, respiratory rate 16, satting 100%, and blood pressure 158/98. Generally, she is awake, alert, oriented, in no apparent distress. Head and Neck: Normocephalic, atraumatic. Neck supple. No JVD, no carotid bruits. Lungs: Clear to auscultation bilaterally. Cardiovascular: S1, S2 regular rate and rhythm. Abdomen: Positive bowel sounds, soft, nontender, nondistended. No rebound or guarding. Sluggish bowel sounds. Extremities: Left lower extremity, no pedal edema. Right lower extremity shows knee immobilizer with dressing in place, clean, intact. ELECTRICAL PANEL BUILDER: No motor or focal sensory deficit. Moving all extremities with the exception of right lower extremity was restricted due to her postoperative routine. DIAGNOSTIC STUDIES/LAB DATA: Her last CBC is 2018. Chemistry in 2018. EKG was 04/09/19, sinus rhythm, SC 172 ms, QRS 104, QTc 404, nonspecific T-wave changes, otherwise unremarkable. X-ray 05/08/19, right knee replacement in satisfactory position. Outside facility lab as dated 04/09/19, TSH 1.8. Her chemistry from 04/09/19, sodium 141, potassium 4.5, BUN 15, creatinine 0.9, calcium 9.0. Urine cultures no growth. CBC: White count 5.6, hemoglobin 13, hematocrit 39, platelet 280, 04/09/19. IMPRESSION: This is a 58-year-old female comes in for elective right total knee arthroplasty. Medicine service consulted for postop management for hypertension and obesity. 1. Right total knee arthroplasty postoperative. As per Orthopedics in terms of diet, activity, and DVT prophylaxis, I see she is on Eliquis 2.5 b.i.d. 2. For her obesity, she is on Wellbutrin twice a day, home regimen, 300 mg b.i.d. this is to be continued. 3. Hypothyroidism. Continue Levoxyl 75 mcg daily. 4. For blood pressure, losartan 50 mg at bedtime, may use her own. Clonidine p.r.n. for systolic blood pressure greater than 180 or diastolic greater than 100. [id number]/[facility] #: [id number] [facility]
[2019-05-08] MEDS: Docusate CAP* 100 MG PO SCH (20:46)
[2019-05-08] MEDS: Magnesium Hydroxide LIQ* 30 ML UDC PO SCH (20:47)
[2019-05-08] MEDS: oxyCODONE SR TAB(*) 15 MG TAB.SR PO SCH (20:47)
[2019-05-08] MEDS ORDERED: NALTREXONE HCL PO SCH (21:00)
[2019-05-08] MEDS ORDERED: Losartan TAB* 25 MG PO SCH ×2 (21:00)
[2019-05-08] MEDS ORDERED: BUPROPION HCL PO SCH (21:00)
[2019-05-08] MEDS: Acetaminophen TAB* 325 MG PO SCH (22:18)
[2019-05-08] MEDS: buPROPion SR TAB.SR* 150 MG PO SCH (22:18)
[2019-05-08] MEDS: ceFAZolin 1 GM ADVAN(*) 1 GM in NS 0.9% 50 ML* 50 ML IVPB SCH (22:19)
[2019-05-09] MEDS: Acetaminophen TAB* 325 MG PO SCH ×3 (04:15→22:48)
[2019-05-09] MEDS: Lactated Ringers 1000 ML Bag* 1,000 ML IV SCH (04:33)
[2019-05-09 05:48] LABS: Hematocrit 34 % (35-47); Hemoglobin 11.6 g/dL (12.0-16.0); Mean Platelet Volume 7.5 fL (7.4-10.4); Platelet Count 253 10^3/uL (150-450)
[2019-05-09] MEDS: oxyCODONE/Acetamin 5/325 MG* TAB PO PRN ×3 (05:52→18:28)
[2019-05-09] MEDS: Levothyroxine TAB* 75 MCG TAB PO SCH (05:52)
[2019-05-09] MEDS: ceFAZolin 1 GM ADVAN(*) 1 GM in NS 0.9% 50 ML* 50 ML IVPB SCH ×2 (05:54→14:36)
[2019-05-09 06:11] LABS: Calcium 8.6 mg/dL (8.6-10.3); EGFR African American 88.5 (>60); EGFR Non-African American 73.2 (>60); Potassium 4.6 mmol/L (3.5-5.0)
[2019-05-09] MEDS: oxyCODONE TAB* 5 MG TAB PO PRN ×4 (07:54→20:56)
[2019-05-09] MEDS: Ketorolac INJ* 30 MG/ML 1 ML VIAL IV PRN ×3 (07:54→23:07)
--- NOTE | 2019-05-09 09:32 | PN ---
Progress Note - Progress Note Date of Service: 05/09/19 SOAP: Subjective: [] Pt seen and examined at bedside, she is feeling well and her pain is well controlled. Denies CP, SOB, dizziness, nausea, abd pain. Tolerated breakfast well. Objective: []Gen: Appears well, NAD RLE: Right knee drssing CDI, thigh soft, DF/PF intact, DP2+, sensation intact to light touch distally. Calves supple and nontender without erythema, edema or palpable cords Assessment: []POD 1 sp RTK Plan: []WBA PT/OT eliquis 2.5 mg po BID x 30 days post op high pain med requirement, increase fluids and ordered additional bowel meds to prevent constipation Will need rehab, CM aware to begin placement Vital Signs Temp 98.4 F 05/09/19 07:45 Pulse 72 05/09/19 07:45 Resp 18 05/09/19 08:49 BP 113/59 05/09/19 07:45 Pulse Ox 98 05/09/19 07:45 Intake & Output 05/08/19 05/09/19 05/09/19 18:59 06:59 18:59 Intake Total 1999 148 Output Total 1874 2049 Balance 125 -565 Weight 214 lb Intake: IV Fluids 1800 1045 ABX - CEFAZOLIN 55 LR 1800 990 Oral 200 440 Output: Trotter 1775 2049 Estimated Blood Loss 100 Laboratory Last Values Hgb 11.6 g/dL (12.0-16.0) L 05/09/19 05:35 Hct 34 % (35-47) L 05/09/19 05:35 Plt Count 253 10^3/uL (150-450) 05/09/19 05:35 MPV 7.5 fL (7.4-10.4) 05/09/19 05:35 Sodium 137 mmol/L (135-145) 05/09/19 05:35 Potassium 4.6 mmol/L (3.5-5.0) 05/09/19 05:35 Chloride 104 mmol/L (101-111) 05/09/19 05:35 Carbon Dioxide 29 mmol/L (22-32) 05/09/19 05:35 Anion Gap 4 mmol/L (2-11) 05/09/19 05:35 BUN 16 mg/dL (6-24) 05/09/19 05:35 Creatinine 0.80 mg/dL (0.51-0.95) 05/09/19 05:35 Est GFR ( Amer) 88.5 (>60) 05/09/19 05:35 Est GFR (Non-Af Amer) 73.2 (>60) 05/09/19 05:35 BUN/Creatinine Ratio 20.0 (8-20) 05/09/19 05:35 Glucose 108 mg/dL (70-100) H 05/09/19 05:35 Calcium 8.6 mg/dL (8.6-10.3) 05/09/19 05:35 Troponin I 0.00 ng/mL (<0.04) 05/09/19 05:35
[2019-05-09] MEDS ORDERED: Polyethylene Glycol 3350* 17 GM PACKET PO PRN (09:38)
[2019-05-09] MEDS ORDERED: Senna TAB 8.6 mg* TAB PO PRN (09:38)
[2019-05-09] MEDS: buPROPion SR TAB.SR* 150 MG PO SCH ×2 (10:01→23:28)
[2019-05-09] MEDS: Docusate CAP* 100 MG PO SCH ×2 (10:01→20:56)
[2019-05-09] MEDS: Apixaban* 2.5 MG TAB PO SCH ×2 (10:01→20:55)
[2019-05-09] MEDS: Cholecalciferol TAB* 1000 UNITS PO SCH (10:01)
[2019-05-09] MEDS: Pantoprazole TAB * 40 MG TAB PO SCH (10:02)
[2019-05-09] MEDS: Ferrous Sulfate TAB* 325 MG PO SCH (10:02)
[2019-05-09] MEDS: Magnesium Hydroxide LIQ* 30 ML UDC PO SCH ×2 (10:02→20:56)
[2019-05-09] MEDS: Vitamin THERAPEUTIC TAB PO SCH (10:02)
[2019-05-09] MEDS: oxyCODONE SR TAB(*) 15 MG TAB.SR PO SCH ×2 (10:02→23:23)
--- NOTE | 2019-05-09 16:01 | PN ---
Subjective Date of Service: 05/09/19 Interval History: Denies any complaints doing well.reports that her bp was low this am Objective Active Medications: Acetaminophen (Tylenol Tab*) 975 mg PO Q8H [facility] Last Admin: 05/09/19 11:29 Dose: Not Given Apixaban (Eliquis*) 2.5 mg PO BID [facility] Last Admin: 05/09/19 10:01 Dose: 2.5 mg Bisacodyl (Dulcolax Supp*) 10 mg [place] DAILY PRN PRN Reason: CONSTIPATION Bupropion HCl (Wellbutrin Sr Tab*) 150 mg PO BID [facility] Last Admin: 05/09/19 10:01 Dose: 150 mg Cholecalciferol (Vitamin D Tab*) 4,000 units PO QAM [facility] Last Admin: 05/09/19 10:01 Dose: 4,000 units Cyclobenzaprine HCl (Flexeril Tab*) 10 mg PO Q6H PRN PRN Reason: SPASMS Last Admin: 05/08/19 20:05 Dose: 10 mg Diphenhydramine HCl (Benadryl Iv*) 25 mg IV Q6H PRN PRN Reason: PRURITIS Diphenhydramine HCl (Benadryl Po*) 25 mg PO Q6H PRN PRN Reason: INSOMNIA Docusate Sodium (Colace Cap*) 100 mg PO BID [facility] Last Admin: 05/09/19 10:01 Dose: 100 mg Ferrous Sulfate (Ferrous Sulfate Tab*) 325 mg PO QAM [facility] Last Admin: 05/09/19 10:02 Dose: 325 mg Lactated Ringer's (Lactated Ringers 1000 Ml Bag*) 1,000 mls @ 100 mls/hr IV PER RATE [facility] Last Admin: 05/09/19 04:33 Dose: 100 mls/hr Ketorolac Tromethamine (Toradol Inj*) 30 mg IV Q6H PRN PRN Reason: PAIN - MILD Last Admin: 05/09/19 07:54 Dose: 30 mg Lactulose (Lactulose*) 30 ml PO BID PRN PRN Reason: CONSTIPATION Levothyroxine Sodium (Synthroid Tab*) 75 mcg PO 0600 [facility] Last Admin: 05/09/19 05:52 Dose: 75 mcg Magnesium Hydroxide (Milk Of Magnesia Liq*) 30 ml PO BID [facility] Last Admin: 05/09/19 10:02 Dose: 30 ml Magnesium Hydroxide (Milk Of Magnesia Liq*) 30 ml PO Q6H PRN PRN Reason: CONSTIPATION Morphine Sulfate (Morphine 10 Mg/Ml Vial (1 Ml)) 5 mg IV Q4H PRN PRN Reason: Pain - Unrelieved Multivitamins (Theragran Tab*) 1 tab PO DAILY [facility] Last Admin: 05/09/19 10:02 Dose: 1 tab Ondansetron HCl (Zofran Inj*) 4 mg IV Q6H PRN PRN Reason: NAUSEA Ondansetron HCl (Zofran Odt Tab*) 4 mg PO Q6H PRN PRN Reason: NAUSEA Oxycodone HCl (Oxycontin(*)) 30 mg PO Q12HR [facility] Last Admin: 05/09/19 10:02 Dose: 30 mg Oxycodone HCl (Roxycodone Tab*) 10 mg PO Q4H PRN PRN Reason: breakthru pain Last Admin: 05/09/19 11:48 Dose: 10 mg Oxycodone/Acetaminophen (Percocet 5/325 Tab*) 1 tab PO Q4H PRN PRN Reason: PAIN - MODERATE Oxycodone/Acetaminophen (Percocet 5/325 Tab*) 2 tab PO Q4H PRN PRN Reason: PAIN - SEVERE Last Admin: 05/09/19 13:38 Dose: 2 tab Pantoprazole Sodium (Protonix Tab*) 40 mg PO DAILY [facility] Last Admin: 05/09/19 10:02 Dose: 40 mg Polyethylene Glycol/Electrolytes (Miralax*) 17 gm PO DAILY PRN PRN Reason: Constipation Polyethylene Glycol/Electrolytes (Miralax*) 17 gm PO DAILY PRN PRN Reason: CONSTIPATION Senna (Senokot 8.6 Mg Tab*) 1 tab PO BEDTIME PRN PRN Reason: CONSTIPATION Tramadol HCl (Ultram*) 50 mg PO Q6H PRN PRN Reason: .PAIN Vital Signs - 8 hr 05/09/19 05/09/19 05/09/19 08:00 08:49 10:02 Temperature Pulse Rate Respiratory 18 18 16 Rate Blood Pressure (mmHg) O2 Sat by Pulse 94 Oximetry 05/09/19 05/09/19 05/09/19 11:24 11:29 11:48 Temperature 97.9 F Pulse Rate 65 Respiratory 16 18 16 Rate Blood Pressure 97/55 (mmHg) O2 Sat by Pulse 94 Oximetry 05/09/19 05/09/19 05/09/19 13:38 14:39 15:39 Temperature 97.9 F Pulse Rate 72 Respiratory 18 16 14 Rate Blood Pressure 139/67 (mmHg) O2 Sat by Pulse 92 Oximetry Oxygen Devices in Use Now: None Eyes: No Scleral Icterus Ears/Nose/Mouth/Throat: NL Teeth, Lips, Gums Neck: NL Appearance and Movements; NL JVP Respiratory: Symmetrical Chest Expansion and Respiratory Effort, Clear to Auscultation Cardiovascular: NL Sounds; No Murmurs; No JVD Abdominal: NL Sounds; No Tenderness; No Distention Extremities: No Edema Skin: No Rash or Ulcers Result Diagrams: 05/09/19 05:35 05/09/19 05:35 Assess/Plan/Problems-Billing Assessment: - Patient Problems (1) History of total right knee replacement Current Visit: Yes Status: Acute Code(s): Z96.651 - PRESENCE OF RIGHT ARTIFICIAL KNEE JOINT SNOMED Code(s): 4233147465737 Comment: s/p Total knee replacement Recovering well Plan per ortho Pain controlled (2) Hypertension Current Visit: Yes Status: Acute Code(s): I10 - ESSENTIAL (PRIMARY) HYPERTENSION SNOMED Code(s): 22410512 Comment: Will hold pt's home ARB for now as BP in the 90s this am and s/p day 1 after surgery and to avoid risk of EMILIO Can likely be restarted tomorrow (3) DVT prophylaxis Current Visit: Yes Status: Acute Code(s): Z29.9 - ENCOUNTER FOR PROPHYLACTIC MEASURES, UNSPECIFIED SNOMED Code(s): 556873850 Comment: Anthony
[2019-05-09] MEDS: diPHENhydraMINE IV* 50 MG/ML 1 ml VIAL (BENADRYL) IV PRN ×2 (16:30→23:06)
[2019-05-09] MEDS: Cyclobenzaprine TAB* 10 MG PO PRN (20:56)
[2019-05-10] MEDS: oxyCODONE/Acetamin 5/325 MG* TAB PO PRN ×5 (01:49→23:57)
[2019-05-10] MEDS: Acetaminophen TAB* 325 MG PO SCH ×3 (04:00→20:31)
[2019-05-10] MEDS: Levothyroxine TAB* 75 MCG TAB PO SCH (06:16)
[2019-05-10 06:19] LABS: ABS Eosinophils 0.1 10^3/ul (0-0.6); ABS Lymphocytes 1.1 10^3/ul (1.0-4.8); ABS Monocytes 0.6 10^3/ul (0-0.8); ABS Neutrophils 5.6 10^3/ul (1.5-7.7); Eosinophil % 0.8 %; Hematocrit 31 % (35-47); Hemoglobin 10.5 g/dL (12.0-16.0); Lymphocyte % 15.2 %; Mean Corpuscular HGB Conc 34 g/dL (31-36); Mean Corpuscular Hemoglobin 31 pg (27-31); Mean Corpuscular Volume 92 fL (80-97); Platelet Count 206 10^3/uL (150-450); Red Blood Count 3.35 10^6 /uL (3.70-4.87); Red Cell Distribution Width 14 % (10-15); White Blood Count 7.4 10^3/uL (3.5-10.8)
[2019-05-10 06:38] LABS: BUN/Creatinine Ratio 13.5 (8-20); Calcium 8.4 mg/dL (8.6-10.3); EGFR African American 96.9 (>60); EGFR Non-African American 80.1 (>60); Potassium 4.5 mmol/L (3.5-5.0)
--- NOTE | 2019-05-10 09:26 | PN ---
Progress Note - Progress Note Date of Service: 05/10/19 SOAP: Subjective: []Pt seen at bedside. Right knee pain is well controlled. Denies CP, SOB, dizziness, nausea, abd pain. Objective: []Gen: Appears well, NAD RLE: Right knee dressing CDI, dressing was changed by Dr Morris this morning incision was CDI no erythema or discharge. Thigh soft, DF/PF intact, DP2+, sensation intact to light touch distally. Calves supple and nontender without erythema, edema or palpable cords Assessment: []POD 2 sp RTK Plan: []WBA PT/OT eliquis 2.5 mg po BID x 30 days post op Bed offer at [facility], needs ins auth. ready for DC when auth complete Vital Signs Temp 98.5 F 05/10/19 07:59 Pulse 78 05/10/19 07:59 Resp 17 05/10/19 07:59 BP 125/75 05/10/19 07:59 Pulse Ox 92 05/10/19 07:59 Intake & Output 05/09/19 05/10/19 05/10/19 18:59 06:59 18:59 Intake Total 1762 1999 360 Output Total 350 2775 200 Balance 1412 -775 160 Intake: IV Fluids 342 LR 342 IVPB 110 ABX - CEFAZOLIN 110 Oral 1310 1999 360 Output: Urine 350 2775 200 Other: Estimated Void Large Laboratory Last Values WBC 7.4 10^3/uL (3.5-10.8) 05/10/19 06:06 RBC 3.35 10^6 /uL (3.70-4.87) L 05/10/19 06:06 Hgb 10.5 g/dL (12.0-16.0) L 05/10/19 06:06 Hct 31 % (35-47) L 05/10/19 06:06 MCV 92 fL (80-97) 05/10/19 06:06 MCH 31 pg (27-31) 05/10/19 06:06 MCHC 34 g/dL (31-36) 05/10/19 06:06 RDW 14 % (10-15) 05/10/19 06:06 Plt Count 206 10^3/uL (150-450) 05/10/19 06:06 MPV 7.0 fL (7.4-10.4) L 05/10/19 06:06 Neut % (Auto) 75.0 % 05/10/19 06:06 Lymph % (Auto) 15.2 % 05/10/19 06:06 [place] % (Auto) 8.7 % 05/10/19 06:06 Eos % (Auto) 0.8 % 05/10/19 06:06 Baso % (Auto) 0.3 % 05/10/19 06:06 Absolute Neuts (auto) 5.6 10^3/ul (1.5-7.7) 05/10/19 06:06 Absolute Lymphs (auto) 1.1 10^3/ul (1.0-4.8) 05/10/19 06:06 Absolute Monos (auto) 0.6 10^3/ul (0-0.8) 05/10/19 06:06 Absolute Eos (auto) 0.1 10^3/ul (0-0.6) 05/10/19 06:06 Absolute Basos (auto) 0.0 10^3/ul (0-0.2) 05/10/19 06:06 Absolute Nucleated RBC 0.0 10^3/ul 05/10/19 06:06 Nucleated RBC % 0.0 05/10/19 06:06 Sodium 137 mmol/L (135-145) 05/10/19 06:06 Potassium 4.5 mmol/L (3.5-5.0) 05/10/19 06:06 Chloride 104 mmol/L (101-111) 05/10/19 06:06 Carbon Dioxide 30 mmol/L (22-32) 05/10/19 06:06 Anion Gap 3 mmol/L (2-11) 05/10/19 06:06 BUN 10 mg/dL (6-24) 05/10/19 06:06 Creatinine 0.74 mg/dL (0.51-0.95) 05/10/19 06:06 Est GFR ( Amer) 96.9 (>60) 05/10/19 06:06 Est GFR (Non-Af Amer) 80.1 (>60) 05/10/19 06:06 BUN/Creatinine Ratio 13.5 (8-20) 05/10/19 06:06 Glucose 108 mg/dL (70-100) H 05/10/19 06:06 Calcium 8.4 mg/dL (8.6-10.3) L 05/10/19 06:06 Troponin I 0.00 ng/mL (<0.04) 05/09/19 05:35
[2019-05-10] MEDS: Docusate CAP* 100 MG PO SCH ×2 (09:33→20:59)
[2019-05-10] MEDS: Apixaban* 2.5 MG TAB PO SCH ×2 (09:33→21:00)
[2019-05-10] MEDS: oxyCODONE TAB* 5 MG TAB PO PRN ×2 (09:33→19:50)
[2019-05-10] MEDS: Ferrous Sulfate TAB* 325 MG PO SCH (09:33)
[2019-05-10] MEDS: Pantoprazole TAB * 40 MG TAB PO SCH (09:33)
[2019-05-10] MEDS: oxyCODONE SR TAB(*) 15 MG TAB.SR PO SCH ×2 (09:33→21:00)
[2019-05-10] MEDS: buPROPion SR TAB.SR* 150 MG PO SCH ×2 (09:33→21:04)
[2019-05-10] MEDS: Ketorolac INJ* 30 MG/ML 1 ML VIAL IV PRN ×2 (09:34→20:59)
[2019-05-10] MEDS: Vitamin THERAPEUTIC TAB PO SCH (09:34)
[2019-05-10] MEDS: Cholecalciferol TAB* 1000 UNITS PO SCH (09:34)
--- NOTE | 2019-05-10 09:36 | DS ---
Orthopedic Discharge Summary - Discharge Summary Date of Admission:05/08/19 Date of Discharge: 05/10/19 Date of Surgery: 05/08/19 Attending Orthopedic Provider: Dr Morris Pre-operative Diagnosis: right knee osteoarthritis Operative Procedure: right total knee replacement Disposition of Patient: [facility] Condition of Patient: stable History: XIANG KYLE is a 58 year old F with years of increasingly severe right knee pain. Patient has failed conservative management and has elected to undergo a right total knee replacement Hospital Course: XIANG was admitted to [facility] on 05/08/19. Patient underwent a right total knee replacement without complication followed by a brief recovery in PACU and transfer to the Short Stay Surgical Unit in stable condition. Our hospitalist service, physical therapy and occupational therapy also participated in this patients care. Post-op day 1: patient was alert and in no acute distress. Dressing was clean, dry and intact. Operative extremity dorsiflexion and plantarflexion intact, sensation intact to light touch distally, DP2+. Post-op day two: dressing was changed, incision was clean , dry and intact. Patient was deemed to be medically and orthopedically stable for discharge to [facility]. Home Medications Medication Instructions Recorded Confirmed Type Vital Nutrients Osteo 1 tab PO BID 02/06/16 04/25/19 History Ferrous Sulfate TAB* 1 tab PO QAM 02/09/16 04/25/19 History Acetaminophen [Tylenol Extra 1,000 mg PO Q6H PRN 04/25/19 04/25/19 History Strength] Cholecalciferol (Vitamin D3) 4,000 unit PO QAM 04/25/19 04/25/19 History [Vitamin D3] Levothyroxine Sodium [Levoxyl] 75 mcg PO 0300 04/25/19 04/25/19 History Losartan Potassium [Cozaar] 50 mg PO BEDTIME 04/25/19 04/25/19 History Naltrexone HCl/Bupropion HCl 2 tab PO BID 04/25/19 04/25/19 History [Contrave ER 8-90 mg Tablet] buPROPion TAB* [Wellbutrin TAB*] 300 mg PO BID 04/25/19 04/25/19 History Acetaminophen TAB* [Tylenol TAB*] 975 mg PO Q8H tab 05/10/19 Rx Apixaban* [Eliquis*] 2.5 mg PO BID 30 Days #60 tab 05/10/19 Rx Docusate CAP* [Colace Cap*] 100 mg PO BID PRN cap 05/10/19 Rx oxyCODONE SR TAB(*) [Oxycontin(*)] 30 mg PO Q12HR tab.sr MDD 2 05/10/19 Rx oxyCODONE TAB* [Roxycodone TAB 5 10 mg PO Q4H PRN tab MDD 10 05/10/19 Rx mg*] oxyCODONE/Acetamin 5/325 MG* 1 tab PO Q4H PRN tab MDD 10 05/10/19 Rx [Percocet 5/325 TAB*] oxyCODONE/Acetamin 5/325 MG* 2 tab PO Q4H PRN tab MDD 10 05/10/19 Rx [Percocet 5/325 TAB*] Discharge Instructions following Orthopedic Surgery: Activity: * Weight Bearing as tolerated * Continue physical therapy and occupational therapy exercises as shown * PT at [facility] then outpatient when discharged Wound care: * OK to shower on post-op day 3, no bathing, swimming, or submerging wound. * Use gentle soap, pat dry. Cover with gauze, CHARLES wrap or tape. * nurse to do wound checks. Call Orthopedic office for: * Increased drainage * Redness * Increased pain * Fever Go to ER with shortness of breath or chest pain. Diet: * Regular diet * Increase fluids and fiber to prevent constipation. * Continue to use stool softeners, call office if no bowel motion within 48 hours. Medications See Home Medication List in your packet for medications that you should take after discharge. DVT Prophylaxis: Medication increases bleeding tendency Eliquis Dosin.5 mg, 1 tab every 12 hours x 30 days post op Pain Control: Percocet Dosin/325 mg 1 tab for moderate-2 tabs for severe by mouth every 4-6 hours as needed for pain. Maximum of 10 tabs per day. Hold for sedation, wean off as soon as pain allows Oxycodone 30 mg SR - 1 tab every 12 hours while having severe persistent pain. Wean off of this medication first to percocet only, then to tylenol only. WEan off as soon as pain allows and hold for sedation. Please note that Percocet contains Tylenol (acetaminophen). Maximum daily dose of Tylenol is 4000 mg from all sources. Antibiotics are required prior to any dental work. FOLLOW UP: Follow up with [Arturo] Within 10-14 days, call for appointment Please call our office with any questions or concerns ([phone])
[2019-05-10] MEDS: Magnesium Hydroxide LIQ* 30 ML UDC PO SCH ×2 (09:39→21:00)
--- NOTE | 2019-05-10 10:10 | PN ---
Subjective Date of Service: 05/10/19 Interval History: in pain after PT.otherwise doing well.bp wnl Objective Active Medications: Acetaminophen (Tylenol Tab*) 975 mg PO Q8H [facility] Last Admin: 05/10/19 04:00 Dose: Not Given Apixaban (Eliquis*) 2.5 mg PO BID [facility] Last Admin: 05/10/19 09:33 Dose: 2.5 mg Bisacodyl (Dulcolax Supp*) 10 mg [place] DAILY PRN PRN Reason: CONSTIPATION Bupropion HCl (Wellbutrin Sr Tab*) 150 mg PO BID [facility] Last Admin: 05/10/19 09:33 Dose: 150 mg Cholecalciferol (Vitamin D Tab*) 4,000 units PO QAM [facility] Last Admin: 05/10/19 09:34 Dose: 4,000 units Cyclobenzaprine HCl (Flexeril Tab*) 10 mg PO Q6H PRN PRN Reason: SPASMS Last Admin: 05/09/19 20:56 Dose: 10 mg Diphenhydramine HCl (Benadryl Iv*) 25 mg IV Q6H PRN PRN Reason: PRURITIS Last Admin: 05/09/19 23:06 Dose: 25 mg Diphenhydramine HCl (Benadryl Po*) 25 mg PO Q6H PRN PRN Reason: INSOMNIA Docusate Sodium (Colace Cap*) 100 mg PO BID [facility] Last Admin: 05/10/19 09:33 Dose: 100 mg Ferrous Sulfate (Ferrous Sulfate Tab*) 325 mg PO QAM [facility] Last Admin: 05/10/19 09:33 Dose: 325 mg Lactated Ringer's (Lactated Ringers 1000 Ml Bag*) 1,000 mls @ 100 mls/hr IV PER RATE [facility] Last Admin: 05/09/19 04:33 Dose: 100 mls/hr Ketorolac Tromethamine (Toradol Inj*) 30 mg IV Q6H PRN PRN Reason: PAIN - MILD Last Admin: 05/10/19 09:34 Dose: 30 mg Lactulose (Lactulose*) 30 ml PO BID PRN PRN Reason: CONSTIPATION Last Admin: 05/10/19 09:34 Dose: 30 ml Levothyroxine Sodium (Synthroid Tab*) 75 mcg PO 0600 [facility] Last Admin: 05/10/19 06:16 Dose: 75 mcg Magnesium Hydroxide (Milk Of Magnesia Liq*) 30 ml PO BID [facility] Last Admin: 05/10/19 09:39 Dose: Not Given Magnesium Hydroxide (Milk Of Magnesia Liq*) 30 ml PO Q6H PRN PRN Reason: CONSTIPATION Morphine Sulfate (Morphine 10 Mg/Ml Vial (1 Ml)) 5 mg IV Q4H PRN PRN Reason: Pain - Unrelieved Multivitamins (Theragran Tab*) 1 tab PO DAILY [facility] Last Admin: 05/10/19 09:34 Dose: 1 tab Ondansetron HCl (Zofran Inj*) 4 mg IV Q6H PRN PRN Reason: NAUSEA Ondansetron HCl (Zofran Odt Tab*) 4 mg PO Q6H PRN PRN Reason: NAUSEA Oxycodone HCl (Oxycontin(*)) 30 mg PO Q12HR [facility] Last Admin: 05/10/19 09:33 Dose: 30 mg Oxycodone HCl (Roxycodone Tab*) 10 mg PO Q4H PRN PRN Reason: breakthru pain Last Admin: 05/10/19 09:33 Dose: 10 mg Oxycodone/Acetaminophen (Percocet 5/325 Tab*) 1 tab PO Q4H PRN PRN Reason: PAIN - MODERATE Oxycodone/Acetaminophen (Percocet 5/325 Tab*) 2 tab PO Q4H PRN PRN Reason: PAIN - SEVERE Last Admin: 05/10/19 06:17 Dose: 2 tab Pantoprazole Sodium (Protonix Tab*) 40 mg PO DAILY [facility] Last Admin: 05/10/19 09:33 Dose: 40 mg Polyethylene Glycol/Electrolytes (Miralax*) 17 gm PO DAILY PRN PRN Reason: Constipation Polyethylene Glycol/Electrolytes (Miralax*) 17 gm PO DAILY PRN PRN Reason: CONSTIPATION Senna (Senokot 8.6 Mg Tab*) 1 tab PO BEDTIME PRN PRN Reason: CONSTIPATION Tramadol HCl (Ultram*) 50 mg PO Q6H PRN PRN Reason: .PAIN Vital Signs - 8 hr 05/10/19 05/10/19 05/10/19 03:58 06:17 06:29 Temperature 99.8 F Pulse Rate 78 Respiratory 17 16 16 Rate Blood Pressure 116/58 (mmHg) O2 Sat by Pulse 95 Oximetry 05/10/19 05/10/19 05/10/19 06:30 07:50 07:59 Temperature 98.5 F Pulse Rate 78 Respiratory 16 16 17 Rate Blood Pressure 125/75 (mmHg) O2 Sat by Pulse 95 92 Oximetry 05/10/19 09:33 Temperature Pulse Rate Respiratory 16 Rate Blood Pressure (mmHg) O2 Sat by Pulse Oximetry Oxygen Devices in Use Now: None Eyes: No Scleral Icterus Ears/Nose/Mouth/Throat: NL Teeth, Lips, Gums Neck: NL Appearance and Movements; NL JVP Respiratory: Symmetrical Chest Expansion and Respiratory Effort Cardiovascular: NL Sounds; No Murmurs; No JVD Abdominal: NL Sounds; No Tenderness; No Distention Neurological: Alert and Oriented x 3 Result Diagrams: 05/10/19 06:06 05/10/19 06:06 Assess/Plan/Problems-Billing Assessment: - Patient Problems (1) History of total right knee replacement Current Visit: Yes Status: Acute Code(s): Z96.651 - PRESENCE OF RIGHT ARTIFICIAL KNEE JOINT SNOMED Code(s): 9284637114306 Comment: s/p Total knee replacement Recovering well Plan per ortho Pain controlled (2) Hypertension Current Visit: Yes Status: Acute Code(s): I10 - ESSENTIAL (PRIMARY) HYPERTENSION SNOMED Code(s): 44587337 Comment: Held ARB yesterday as BP soft Can restart BP in good range (3) DVT prophylaxis Current Visit: Yes Status: Acute Code(s): Z29.9 - ENCOUNTER FOR PROPHYLACTIC MEASURES, UNSPECIFIED SNOMED Code(s): 972845494 Comment: Anthony
[2019-05-10] MEDS: diPHENhydraMINE PO* 25 MG PO PRN ×2 (14:14→21:04)
[2019-05-10] MEDS ORDERED: Bisacodyl SUPP* 10 MG SUPP PR PRN (15:58)
[2019-05-11] MEDS: Acetaminophen TAB* 325 MG PO SCH ×2 (02:10→10:15)
[2019-05-11] MEDS: diPHENhydraMINE PO* 25 MG PO PRN ×2 (02:26→13:10)
[2019-05-11] MEDS: Levothyroxine TAB* 75 MCG TAB PO SCH (05:33)
[2019-05-11] MEDS: Cyclobenzaprine TAB* 10 MG PO PRN (05:33)
[2019-05-11] MEDS: oxyCODONE/Acetamin 5/325 MG* TAB PO PRN ×3 (05:34→15:32)
[2019-05-11 07:03] LABS: Hematocrit 28 % (35-47); Hemoglobin 9.8 g/dL (12.0-16.0); Mean Platelet Volume 7.6 fL (7.4-10.4); Platelet Count 200 10^3/uL (150-450)
[2019-05-11] MEDS: Apixaban* 2.5 MG TAB PO SCH (07:39)
[2019-05-11] MEDS: Ferrous Sulfate TAB* 325 MG PO SCH (07:39)
[2019-05-11] MEDS: Pantoprazole TAB * 40 MG TAB PO SCH (07:39)
[2019-05-11] MEDS: Cholecalciferol TAB* 1000 UNITS PO SCH (07:39)
[2019-05-11] MEDS: Magnesium Hydroxide LIQ* 30 ML UDC PO SCH (07:39)
[2019-05-11] MEDS: buPROPion SR TAB.SR* 150 MG PO SCH (07:39)
[2019-05-11] MEDS: oxyCODONE SR TAB(*) 15 MG TAB.SR PO SCH (07:39)
[2019-05-11] MEDS: Vitamin THERAPEUTIC TAB PO SCH (07:39)
[2019-05-11] MEDS: Docusate CAP* 100 MG PO SCH (07:39)
[2019-05-11] MEDS: oxyCODONE TAB* 5 MG TAB PO PRN (10:05)
--- NOTE | 2019-05-11 13:11 | PN ---
Progress Note - Progress Note Date of Service: 05/11/19 SOAP: Subjective: []Patient seen at bedside, doing well. Is hoping for insurance approval for swing bed today. She denies SOB, CP, dizziness or nausea. Objective: [] Vital Signs Temp 97.5 F 05/11/19 11:21 Pulse 72 05/11/19 11:21 Resp 18 05/11/19 11:54 BP 125/67 05/11/19 11:21 Pulse Ox 99 05/11/19 11:21 Intake & Output 05/10/19 05/11/19 05/11/19 18:59 06:59 18:59 Intake Total 560 1650 940 Output Total 1200 1600 400 Balance -640 50 540 Intake: Oral 560 1650 940 Output: Urine 1200 1600 400 Laboratory Results - last 24 hr 05/11/19 06:39 Hgb 9.8 L Hct 28 L Plt Count 200 MPV 7.6 Right knee incision benign calf NT +DF right ankle sensation intact distally Assessment: []s/p right total knee arthroplasty POD #3 Plan: []Discharge to [facility] swing bed if insurance approval granted PERLITA Cruz for DVT propylaxis
--- NOTE | 2019-05-11 14:16 | PN ---
Subjective Date of Service: 05/11/19 Interval History: Pt reports that she is frustrated that she is not on PT schedule and does not have insurance auth yet. But understands.Denies other complaints otherwise Objective Active Medications: Acetaminophen (Tylenol Tab*) 975 mg PO Q8H [facility] Last Admin: 05/11/19 10:15 Dose: Not Given Apixaban (Eliquis*) 2.5 mg PO BID [facility] Last Admin: 05/11/19 07:39 Dose: 2.5 mg Bisacodyl (Dulcolax Supp*) 10 mg [place] DAILY PRN PRN Reason: CONSTIPATION Last Admin: 05/11/19 11:32 Dose: 10 mg Bupropion HCl (Wellbutrin Sr Tab*) 150 mg PO BID [facility] Last Admin: 05/11/19 07:39 Dose: 150 mg Cholecalciferol (Vitamin D Tab*) [facility] [facility] Admin: 05/11/19 07:39 Dose: 4,000 units Cyclobenzaprine HCl (Flexeril Tab*) 10 mg PO Q6H PRN PRN Reason: SPASMS Last Admin: 05/11/19 05:33 Dose: 10 mg Diphenhydramine HCl (Benadryl Iv*) 25 mg IV Q6H PRN PRN Reason: PRURITIS Last Admin: 05/09/19 23:06 Dose: 25 mg Diphenhydramine HCl (Benadryl Po*) 25 mg PO Q6H PRN PRN Reason: INSOMNIA Last Admin: 05/11/19 13:10 Dose: 25 mg Docusate Sodium (Colace Cap*) 100 mg PO BID [facility] Last Admin: 05/11/19 07:39 Dose: 100 mg Ferrous Sulfate (Ferrous Sulfate Tab*) 325 mg PO QAM [facility] Last Admin: 05/11/19 07:39 Dose: 325 mg Lactated Ringer's (Lactated Ringers 1000 Ml Bag*) 1,000 mls @ 100 mls/hr IV PER RATE [facility] Last Admin: 05/09/19 04:33 Dose: 100 mls/hr Ketorolac Tromethamine (Toradol Inj*) 30 mg IV Q6H PRN PRN Reason: PAIN - MILD Last Admin: 05/10/19 20:59 Dose: 30 mg Lactulose (Lactulose*) 30 ml PO BID PRN PRN Reason: CONSTIPATION Last Admin: 05/11/19 00:03 Dose: 30 ml Levothyroxine Sodium (Synthroid Tab*) 75 mcg PO 0600 [facility] Last Admin: 05/11/19 05:33 Dose: 75 mcg Magnesium Hydroxide (Milk Of Magnesia Liq*) 30 ml PO BID [facility] Last Admin: 05/11/19 07:39 Dose: Not Given Magnesium Hydroxide (Milk Of Magnesia Liq*) 30 ml PO Q6H PRN PRN Reason: CONSTIPATION Morphine Sulfate (Morphine 10 Mg/Ml Vial (1 Ml)) 5 mg IV Q4H PRN PRN Reason: Pain - Unrelieved Multivitamins (Theragran Tab*) 1 tab PO DAILY [facility] Last Admin: 05/11/19 07:39 Dose: 1 tab Ondansetron HCl (Zofran Inj*) 4 mg IV Q6H PRN PRN Reason: NAUSEA Ondansetron HCl (Zofran Odt Tab*) 4 mg PO Q6H PRN PRN Reason: NAUSEA Oxycodone HCl (Oxycontin(*)) 30 mg PO Q12HR [facility] Last Admin: 05/11/19 07:39 Dose: 30 mg Oxycodone HCl (Roxycodone Tab*) 10 mg PO Q4H PRN PRN Reason: breakthru pain Last Admin: 05/11/19 10:05 Dose: 10 mg Oxycodone/Acetaminophen (Percocet 5/325 Tab*) 1 tab PO Q4H PRN PRN Reason: PAIN - MODERATE Oxycodone/Acetaminophen (Percocet 5/325 Tab*) 2 tab PO Q4H PRN PRN Reason: PAIN - SEVERE Last Admin: 05/11/19 11:40 Dose: 2 tab Pantoprazole Sodium (Protonix Tab*) 40 mg PO DAILY [facility] Last Admin: 05/11/19 07:39 Dose: 40 mg Polyethylene Glycol/Electrolytes (Miralax*) 17 gm PO DAILY PRN PRN Reason: Constipation Last Admin: 05/10/19 15:34 Dose: 17 gm Polyethylene Glycol/Electrolytes (Miralax*) 17 gm PO DAILY PRN PRN Reason: CONSTIPATION Senna (Senokot 8.6 Mg Tab*) 1 tab PO BEDTIME PRN PRN Reason: CONSTIPATION Tramadol HCl (Ultram*) 50 mg PO Q6H PRN PRN Reason: .PAIN Vital Signs - 8 hr 05/11/19 05/11/19 05/11/19 07:27 07:39 07:40 Temperature 98.5 F Pulse Rate 80 Respiratory 17 18 18 Rate Blood Pressure 120/74 (mmHg) O2 Sat by Pulse 95 Oximetry 05/11/19 05/11/19 05/11/19 08:00 10:05 11:21 Temperature 97.5 F Pulse Rate 72 Respiratory 18 18 16 Rate Blood Pressure 125/67 (mmHg) O2 Sat by Pulse 95 99 Oximetry 05/11/19 05/11/19 05/11/19 11:40 11:54 13:10 Temperature Pulse Rate Respiratory 18 18 18 Rate Blood Pressure (mmHg) O2 Sat by Pulse Oximetry 05/11/19 13:29 Temperature Pulse Rate Respiratory 18 Rate Blood Pressure (mmHg) O2 Sat by Pulse Oximetry Oxygen Devices in Use Now: None Eyes: No Scleral Icterus Ears/Nose/Mouth/Throat: NL Teeth, Lips, Gums Neck: NL Appearance and Movements; NL JVP Respiratory: Symmetrical Chest Expansion and Respiratory Effort Cardiovascular: NL Sounds; No Murmurs; No JVD Abdominal: NL Sounds; No Tenderness; No Distention Extremities: No Edema Neurological: Alert and Oriented x 3 Result Diagrams: 05/11/19 06:39 05/10/19 06:06 Assess/Plan/Problems-Billing Assessment: - Patient Problems (1) History of total right knee replacement Current Visit: Yes Status: Acute Code(s): Z96.651 - PRESENCE OF RIGHT ARTIFICIAL KNEE JOINT SNOMED Code(s): 3777148010883 Comment: s/p Total knee replacement Recovering well Plan per ortho Pain controlled (2) Hypertension Current Visit: Yes Status: Acute Code(s): I10 - ESSENTIAL (PRIMARY) HYPERTENSION SNOMED Code(s): 72932157 Comment: BP in good range without ARB Can consider low dose at discharge if warranted (3) DVT prophylaxis Current Visit: Yes Status: Acute Code(s): Z29.9 - ENCOUNTER FOR PROPHYLACTIC MEASURES, UNSPECIFIED SNOMED Code(s): 263312162 Comment: Anthony
--- NOTE | 2019-05-11 15:33 | DS ---
Orthopedic Discharge Summary - Discharge Summary Orthopedic Discharge Summary Patient Name: XIANG KYLE Date of : 1960 Patient Status: Inpatient Attending Provider: Viri Morris Date: 05/10/19 09:34 Initialization Date: 05/10/19 09:34 Orthopedic Discharge Summary - Discharge Summary Date of Admission:05/08/19 Date of Discharge: 05/11/19 Date of Surgery: 05/08/19 Attending Orthopedic Provider: Dr Morris Pre-operative Diagnosis: right knee osteoarthritis Operative Procedure: right total knee replacement Disposition of Patient: home Condition of Patient: stable History: XIANG KYLE is a 58 year old F with years of increasingly severe right knee pain. Patient has failed conservative management and has elected to undergo a right total knee replacement Hospital Course: XIANG was admitted to [facility] on 05/08/19. Patient underwent a right total knee replacement without complication followed by a brief recovery in PACU and transfer to the Short Stay Surgical Unit in stable condition. Our hospitalist service, physical therapy and occupational therapy also participated in this patients care. Post-op day 1: patient was alert and in no acute distress. Dressing was clean, dry and intact. Operative extremity dorsiflexion and plantarflexion intact, sensation intact to light touch distally, DP2+. Post-op day two: dressing was changed, incision was clean , dry and intact. Patient was deemed to be medically and orthopedically stable for discharge. Her insurance company did not approve Swing bed and she mastered her PT/OT goals to safely be discharged home by POD #3. Home Medications Medication Instructions Recorded Confirmed Type Vital Nutrients Osteo 1 tab PO BID 02/06/16 04/25/19 History Ferrous Sulfate TAB* 1 tab PO QAM 02/09/16 04/25/19 History Acetaminophen [Tylenol Extra 1,000 mg PO Q6H PRN 04/25/19 04/25/19 History Strength] Cholecalciferol (Vitamin D3) 4,000 unit PO QAM 04/25/19 04/25/19 History [Vitamin D3] Levothyroxine Sodium [Levoxyl] 75 mcg PO 0300 04/25/19 04/25/19 History Losartan Potassium [Cozaar] 50 mg PO BEDTIME 04/25/19 04/25/19 History Naltrexone HCl/Bupropion HCl 2 tab PO BID 04/25/19 04/25/19 History [Contrave ER 8-90 mg Tablet] buPROPion TAB* [Wellbutrin TAB*] 300 mg PO BID 04/25/19 04/25/19 History Acetaminophen TAB* [Tylenol TAB*] 975 mg PO Q8H tab 05/10/19 Rx Apixaban* [Eliquis*] 2.5 mg PO BID 30 Days #60 tab 05/10/19 Rx Docusate CAP* [Colace Cap*] 100 mg PO BID PRN cap 05/10/19 Rx oxyCODONE SR TAB(*) [Oxycontin(*)] 30 mg PO Q12HR tab.sr MDD 2 05/10/19 Rx oxyCODONE TAB* [Roxycodone TAB 5 10 mg PO Q4H PRN tab MDD 10 05/10/19 Rx mg*] oxyCODONE/Acetamin 5/325 MG* 1 tab PO Q4H PRN tab MDD 10 05/10/19 Rx [Percocet 5/325 TAB*] oxyCODONE/Acetamin 5/325 MG* 2 tab PO Q4H PRN tab MDD 10 05/10/19 Rx [Percocet 5/325 TAB*] Discharge Instructions following Orthopedic Surgery: Activity: * Weight Bearing as tolerated * Continue physical therapy and occupational therapy exercises as shown * PT at [facility] then outpatient when discharged Wound care: * OK to shower on post-op day 3, no bathing, swimming, or submerging wound. * Use gentle soap, pat dry. Cover with gauze, CHARLES wrap or tape. * nurse to do wound checks. Call Orthopedic office for: * Increased drainage * Redness * Increased pain * Fever Go to ER with shortness of breath or chest pain. Diet: * Regular diet * Increase fluids and fiber to prevent constipation. * Continue to use stool softeners, call office if no bowel motion within 48 hours. Medications See Home Medication List in your packet for medications that you should take after discharge. DVT Prophylaxis: Medication increases bleeding tendency Eliquis Dosin.5 mg, 1 tab every 12 hours x 30 days post op Pain Control: Percocet Dosin/325 mg 1 tab for moderate-2 tabs for severe by mouth every 4-6 hours as needed for pain. Maximum of 10 tabs per day. Hold for sedation, wean off as soon as pain allows Please note that Percocet contains Tylenol (acetaminophen). Maximum daily dose of Tylenol is 4000 mg from all sources. Antibiotics are required prior to any dental work. FOLLOW UP: Follow up with [Arturo] Within 10-14 days, call for appointment Please call our office with any questions or concerns ([phone])
[2019-05-11 15:36] VITALS: BP 125/73
== END 2019-05-11 17:00 | disposition home health service (06) | DRG 470 ==
LOC: AA 11:00 → SSU 17:59
PROVIDERS: ADMIT Orthopaedic Surgery Adult Reconstructive Orthopaedic Surgery; ATTEND Orthopaedic Surgery Adult Reconstructive Orthopaedic Surgery
PROC: 0SRC069 Replacement of Right Knee Joint with Oxidized Zirconium on Polyethylene Synthetic Substitute, Cemented, Open Approach (ICD-10-PCS; principal; 2019-05-08 13:30)
DX: M17.11 Unilateral primary osteoarthritis, right knee (principal); E87.2 Acidosis; I10 Essential (primary) hypertension; E78.00 Pure hypercholesterolemia, unspecified; K21.9 Gastro-esophageal reflux disease without esophagitis; E66.01 Morbid (severe) obesity due to excess calories; Z96.652 Presence of left artificial knee joint; E03.9 Hypothyroidism, unspecified; M25.761 Osteophyte, right knee; M19.049 Primary osteoarthritis, unspecified hand; M25.461 Effusion, right knee; Z68.37 Body mass index [BMI] 37.0-37.9, adult; Z98.84 Bariatric surgery status; Z98.51 Tubal ligation status; Z90.49 Acquired absence of other specified parts of digestive tract; Z83.3 Family history of diabetes mellitus; Z82.49 Family history of ischemic heart disease and other diseases of the circulatory system; Z88.1 Allergy status to other antibiotic agents; Z83.49 Family history of other endocrine, nutritional and metabolic diseases
CPT/HCPCS: 36415; 80048; 84484; 85014; 85018; 85025; 85049; 88305; 88311; 93005; A9270-GY; C1776; J0690; J1100; J1200; J1885; J2250; J2270; J2405; J2704; J2795; J3010; J3490

== ENCOUNTER 2019-12-15 15:24 | Emergency (ER) | payer OTHER ==
--- NOTE | 2019-12-15 15:55 | ED ---
Lower Extremity - HPI Summary HPI Summary: Patient is a 59-year-old female presenting to [facility] Emergency Department with a chief complaint of bilateral knee and right ankle injuries after sustaining a mechanical fall immediately prior to arrival. She reports she had been carrying too many boxes and miscalculated her footing, subsequently resulting in her slipped and falling down three stairs. She landed on both knees, and she also felt like she twisted her right ankle. She additionally notes pain in the left great toe. She denies any head or neck injuries, or any loss of consciousness. She is able to somewhat ambulate although with great amount of pain. She is able to bear weight on both lower extremities. Pain is rated 8/10 in severity worse on the left. Past medical history includes bilateral knee replacements, bilateral torn meniscuses, thyroid disease, hypertension, gastric bypass, tubal ligation. Nonsmoker. Admits to weekly alcohol use. No substance use. Medications reviewed. Allergies noted. - History of Current Complaint Chief Complaint: EDFall Stated Complaint: FALL/BOTH KNEES INJURED PER PT Time Seen by Provider: 12/15/19 15:43 Hx Obtained From: Patient Mechanism Of Injury: Fall From A Standing Position - down three stairs landing on knees Onset of Pain: Immediate Onset/Duration: Still Present Severity Initially: Moderate Severity Currently: Moderate Pain Intensity: 8 Pain Scale Used: 0-10 Numeric Timing: Constant Location: Other - bilateral knees, right ankle, left great toe Associated Signs And Symptoms: Positive: Knee Pain - bilateral, Other - right ankle pain, left great toe pain; Negative: head/neck injury, LOC Aggravating Factor(s): Ambulation Alleviating Factor(s): Rest Able to Bear Weight: Yes Related History: Other - bilateral knee replacements - Allergies/Home Medications Allergies/Adverse Reactions: Allergies Allergy/AdvReac Type Severity Reaction Status Date / Time tetracycline Allergy Mild Rash Verified 12/15/19 15:34 bee venom protein (honey bee) Allergy Anaphylatic Verified 12/15/19 15:34 Shock NSAIDS (Non-Steroidal Allergy Unknown Verified 12/15/19 15:34 Anti-Inflamma Reaction Details Home Medications: Home Medications Vital Nutrients Osteo 1 tab PO BID 02/06/16 [History Confirmed 04/25/19] Ferrous Sulfate TAB* 1 tab PO QAM 02/09/16 [History Confirmed 04/25/19] Acetaminophen [Tylenol Extra Strength] 1,000 mg PO Q6H PRN 04/25/19 [History Confirmed 04/25/19] Cholecalciferol (Vitamin D3) [Vitamin D3] 4,000 unit PO QAM 04/25/19 [History Confirmed 04/25/19] Levothyroxine Sodium [Levoxyl] 75 mcg PO 0300 04/25/19 [History Confirmed ] Losartan Potassium [Cozaar] 50 mg PO BEDTIME 04/25/19 [History Confirmed ] Naltrexone HCl/Bupropion HCl [Contrave ER 8-90 mg Tablet] 2 tab PO BID 04/25/19 [History Confirmed 04/25/19] buPROPion TAB* [Wellbutrin TAB*] 300 mg PO BID 04/25/19 [History Confirmed 04/25] Apixaban* [Eliquis*] 2.5 mg PO BID #60 tab 05/11/19 [Rx] Docusate CAP* [Colace Cap*] 100 mg PO BID cap 05/11/19 [Rx] oxyCODONE/Acetamin 5/325 MG* [Percocet 5/325 TAB*] 1 - 2 tab PO Q4H PRN #70 tab MDD 10 05/11/19 [Rx] PMH/Surg Hx/FS Hx/Imm Hx Endocrine/Hematology History: Reports: Hx Thyroid Disease Denies: Hx Diabetes Cardiovascular History: Reports: Hx Hypertension Denies: Hx Hypercholesterolemia, Hx Pacemaker/ICD, Hx Peripheral Vascular Disease Respiratory History: Denies: Hx Asthma, Hx Chronic Obstructive Pulmonary Disease (COPD) GI History: Denies: Hx Ulcer History: Denies: Hx Renal Disease Musculoskeletal History: Denies: Hx Arthritis, Hx Rheumatoid Arthritis, Hx Osteoporosis Sensory History: Denies: Hx Cataracts, Hx Contacts or Glasses, Hx Glaucoma, Hx Hearing Aid Opthamlomology History: Denies: Hx Cataracts, Hx Contacts or Glasses, Hx Glaucoma Neurological History: Denies: Hx Headaches, Hx Seizures, Hx Transient Ischemic Attacks (TIA) Psychiatric History: Denies: Hx Anxiety, Hx Depression, Hx Panic Disorder - Cancer History Hx Chemotherapy: No Hx Radiation Therapy: No - Surgical History Surgical History: Yes Surgery Procedure, Year, and Place: total left knee replacement (2012) gastric by pass (2008) gall bladder removed (1994) rt and lt torn meniscus / scoping ( ) tubal ligation (1992),breast biopsy pt unsure what side Hx Anesthesia Reactions: No Infectious Disease History: No Infectious Disease History: Denies: Hx Clostridium Difficile, Hx Hepatitis, Hx Human Immunodeficiency Virus (HIV), Hx of Known/Suspected MRSA, Hx Shingles, Hx Tuberculosis, Hx Known/ Suspected VRE, Hx Known/Suspected VRSA, History Other Infectious Disease, Traveled Outside the [place] in Last 30 Days - Family History Known Family History: Positive: Cardiac Disease - Social History Alcohol Use: Weekly Alcohol Amount: 1-2 glasses wine per day with dinner Hx Substance Use: No Substance Use Type: Reports: None Hx Tobacco Use: No Smoking Status (MU): Never Smoked Tobacco Have You Smoked in the Last Year: No Review of Systems Positive: Arthralgia - bilateral knees, right ankle, left great toe. Negative: Other - neck injury Neurological/Mental Status: Other - Negative: head injury, LOC All Other Systems Reviewed And Are Negative: Yes Physical Exam - Summary Physical Exam Summary: VITAL SIGNS: Reviewed. GENERAL: Patient is a well-developed although obese female who is lying comfortable in the stretcher. Patient is in some distress secondary to pain. Patient is not in any acute respiratory distress. HEAD AND FACE: No signs of trauma. No ecchymosis, hematomas or skull depressions. No sinus tenderness. EYES: PERRL, EOMI x 2, No injected conjunctiva, no nystagmus. EARS: Hearing grossly intact. Ear canals and tympanic membranes are within normal limits. MOUTH: Oropharynx within normal limits. NECK: Supple, trachea is midline, no adenopathy, no JVD, no carotid bruit, no c- spine tenderness, neck with full ROM. CHEST: Symmetric, no tenderness at palpation. LUNGS: Clear to auscultation bilaterally. No wheezing or crackles. CVS: Regular rate and rhythm, S1 and S2 present, no murmurs or gallops appreciated. ABDOMEN: Soft, non-tender. No signs of distention. No rebound, no guarding, and no masses palpated. Bowel sounds are normal. EXTREMITIES: Decreased ROM in both knees and right ankle secondary to pain. No obvious deformities. Good capillary refills. Good pulses. FROM in all major joints, no edema, no cyanosis or clubbing. NEURO: Alert and oriented x 3. No acute neurological deficits. Speech is normal and follows commands. SKIN: Dry and warm. No hematomas or lacerations. Triage Information Reviewed: Yes Vital Signs On Initial Exam: Initial Vitals Temp Pulse Resp BP Pulse Ox 100.4 F 75 16 136/78 97 12/15/19 15:31 12/15/19 15:31 12/15/19 15:31 12/15/19 15:31 12/15/19 15:31 Vital Signs Reviewed: Yes Procedures - Sedation Patient Received Moderate/Deep Sedation with Procedure: No - Splinting Right Lower Extremity Location: right ankle Hand-Made Type: fiberglass Splint: posterior walking Pre-Proc Neuro Vasc Exam: normal Post-Proc Neuro Vasc Exam: normal Splint Applied by Provider: Keagan Rivera - Vital Signs Vital Signs Temp Pulse Resp BP Pulse Ox 12/15/19 15:31 100.4 F 75 16 136/78 97 - Laboratory Lab Statement: Any lab studies that have been ordered have been reviewed, and results considered in the medical decision making process. - Radiology Ankle XR Radiology Interpretation Completed By: Radiologist Summary of Radiographic Findings: Impression: Probable avulsion fracture of the dorsal aspect of the talus. Questionable nondisplaced fracture of the lateral calcaneus. Osteoarthritis. Dr. Rivera has reviewed this report. Right Foot X-Ray Radiology Interpretation Completed By: Radiologist Summary of Radiographic Findings: Impression: Probable avulsion fracture of the dorsal aspect of the talus. Questionable nondisplaced fracture of the lateral calcaneus. Osteoarthritis. Dr. Rivera has reviewed this report. Bilateral Knee X-Ray Radiology Interpretation Completed By: Radiologist Summary of Radiographic Findings: Impression: 1. Osteopenia. 2. Status post bilateral knee arthroplasty. 3. No acute osseous injury. If symptoms persist, recommend repeat imaging. Dr. Rivera has reviewed this report. Re-Evaluation - Re-Evaluation First Eval Re-Evaluation Time: 17:10 Comment: Splint applied. All results discussed with patient. Patient agreeable with discharge plan. Lower Extremity Course/Dx - Course Assessment/Plan: Patient is a 59-year-old female presenting to [facility] Emergency Department with a chief complaint of bilateral knee and right ankle injuries after sustaining a mechanical fall immediately prior to arrival. She reports she had been carrying too many boxes and miscalculated her footing, subsequently resulting in her slipped and falling down three stairs. She landed on both knees, and she also felt like she twisted her right ankle. She additionally notes pain in the left great toe. She denies any head or neck injuries, or any loss of consciousness. She is able to somewhat ambulate although with great amount of pain. She is able to bear weight on both lower extremities. Pain is rated 8/10 in severity worse on the left. Past medical history includes bilateral knee replacements, bilateral torn meniscuses, thyroid disease, hypertension, gastric bypass, tubal ligation. Nonsmoker. Admits to weekly alcohol use. No substance use. Medications reviewed. Allergies noted. Patient is an obese female in some distress secondary to pain. There is decreased ROM in both knees and the right ankle secondary to pain. There are no obvious deformities, hematomas, or lacerations. Good capillary refill, and good pulses. Patient received Tylenol for pain. X-rays of the right ankle and foot impression: Probable avulsion fracture of the dorsal aspect of the talus. Questionable nondisplaced fracture of the lateral calcaneus. Osteoarthritis. Bilateral Knee x-ray impression: 1. Osteopenia. 2. Status post bilateral knee arthroplasty. 3. No acute osseous injury. A fiberglass posterior splint was applied to the right ankle. Neruovascular intact before and after placing the splint. She is given crutches upon discharge. Patient declined pain medication. Patient is safe for discharge with PCP and also orthopedic follow up in 2-3 days. Patient understands and agrees. Plan of care was discussed with the patient, and patient understands and agrees. All questions were answered at patient satisfaction. There were no further complaints or concerns. - Diagnoses Provider Diagnoses: Avulsion fracture of talus, Calcaneus fracture, right, Knee pain - Critical Care Time Critical Care Statement: Critical care time is provided exclusive of any time spent performing procedures. Discharge ED - Sign-Out/Discharge Documenting (check all that apply): Patient Departure - Patient will be discharged home. - Discharge Plan Condition: Stable Disposition: HOME Patient Education Materials: Foot Fracture in Adults (ED), Knee Pain (ED) Referrals: Geovani Vernon MD [Primary Care Provider] - 3 Days Jamie Mendez MD [Medical Doctor] - 3 Days Additional Instructions: Please follow up with orthopedics in 2-3 days. Also follow up with your primary care provider. Return to the emergency department for any new or worsening symptoms. - Billing Disposition and Condition Condition: STABLE Disposition: Home - Attestation Statements Document Initiated by Sae: Yes Documenting Scribe: Gala Huerta Provider For Whom Sae is Documenting (Include Credential): Keagan Rivera MD Scribnika Attestation: Gala Phillip, scribed for Keagan Rivera MD on 12/15/19 at 1811. Scribe Documentation Reviewed: Yes Provider Attestation: The documentation as recorded by the Gala parrish accurately reflects the service I personally performed and the decisions made by me, Keagan Rivera MD Status of Scribe Document: Viewed
[2019-12-15] MEDS ORDERED: Acetaminophen TAB* 325 MG PO ONE ×2 (17:20→17:24)
[2019-12-15 18:22] VITALS: BP 134/72
== END 2019-12-15 18:00 | disposition home or self-care (01) ==
LOC: ED 15:24
DX: S92.191A Other fracture of right talus, initial encounter for closed fracture (principal); S92.001A Unspecified fracture of right calcaneus, initial encounter for closed fracture; M25.561 Pain in right knee; E07.9 Disorder of thyroid, unspecified; W10.9XXA Fall (on) (from) unspecified stairs and steps, initial encounter; Y92.9 Unspecified place or not applicable; I10 Essential (primary) hypertension; Z96.653 Presence of artificial knee joint, bilateral
CPT/HCPCS: 29515; 99282; A9270-GY